=== PATIENT | male | born 1965 | race Caucasian/White ===

== ENCOUNTER 2019-01-04 09:40 | Emergency (ER) | payer BC, OTHER ==
[~2019-01-04] VITALS: Ht 190.5 cm; Wt 149.7 kg
[2019-01-04] MEDS ORDERED: SODIUM CHLORIDE 0.9% 1,000 ML IV ONE ×2 (10:15)
[2019-01-04] MEDS ORDERED: PROMETHAZINE HCL 25 MG/ML 1ML IV ONE (10:15)
[2019-01-04] MEDS ORDERED: KETOROLAC TROMETH 30 MG/ML 1ML VIAL IV ONE (10:15)
[2019-01-04 10:40] LABS: Basophils # (auto) 0.1 uL; Basophils % (auto) 0.7 % (0.0-2.0); Eosinophils # (auto) 0.3 uL; Eosinophils % (auto) 3.2 % (0.0-7.0); Hematocrit 48.9 % (41.0-53.0); Hemoglobin 17.2 g/dL (13.5-17.5); Lymphocytes # (auto) 1.5 uL; Lymphocytes % (auto) 18.8 % (10.0-50.0); Mean Corpuscular Hemoglobin 32.4 pg (28.0-32.0); Mean Corpuscular Hgb Conc. 35.3 g/dL (32.0-36.0); Mean Corpuscular Volume 91.8 fL (80.0-100.0); Monocytes # (auto) 0.5 uL; Monocytes % (auto) 5.8 % (0.0-12.0); Neutrophils # (auto) 5.8 uL; Neutrophils % (auto) 71.5 % (37.0-80.0); Nucleated Red Blood Cells % 0.3 %; Platelet Count (auto) 191 10^3/uL (140-450); Red Blood Cells 5.33 10^6/uL (4.5-5.90); Red Cell Distribution Width 13.4 % (11.8-14.3); White Blood Cell 8.1 10^3/uL (4.4-10.8)
[2019-01-04 11:03] LABS: Alanine Aminotransferase 21 U/L (16-61); Albumin 3.7 g/dL (3.4-5.0); Anion Gap 5 (5-15); Aspartate Aminotransferase 14 U/L (15-37); BUN/Creatinine Ratio 19.4; Blood Urea Nitrogen 21 mg/dL (7-18); Calcium 9.7 mg/dL (8.5-10.1); Carbon Dioxide 23 mmol/L (21-32); Chloride 111 mmol/L (98-107); GFR African American 92 mL/min; GFR Non-African American 76 mL/min; Glucose 100 mg/dL (74-106); Potassium 4.3 mmol/L (3.5-5.1); Sodium 139 mmol/L (136-145)
[2019-01-04 11:07] LABS: Alkaline Phosphatase 101 U/L (45-117); Bilirubin, Total 0.4 mg/dL (0.2-1.0); Total Protein 7.1 g/dL (6.4-8.2)
[2019-01-04 11:53] LABS: Urine Bacteria NONE SEEN /hpf (None Seen); Urine Blood 3+ /uL (Negative); Urine Mucus FEW (None Seen); Urine Specific Gravity 1.017 (1.001-1.035); Urine WBC 158 /hpf (0 - 3)
[2019-01-04 12:03] VITALS: BP 116/77
== END 2019-01-04 12:11 | disposition home or self-care (01) ==
LOC: EDBD 09:40 → EDUNIT# 09:40 → ER 09:40
DX: N39.0 Urinary tract infection, site not specified (principal); N20.0 Calculus of kidney; F17.210 Nicotine dependence, cigarettes, uncomplicated
CPT/HCPCS: 36415; 74176; 80053; 81001; 84484; 85025; 93005; 96361; 96374; 96375; 99284; J1885; J2550; J7030

== ENCOUNTER 2019-05-09 13:07 | Emergency (ER) | payer BC ==
[~2019-05-09] VITALS: Ht 193 cm; Wt 136.1 kg
[2019-05-09 14:08] LABS: Basophils # (auto) 0 uL; Basophils % (auto) 0.4 % (0.0-2.0); Eosinophils # (auto) 0.2 uL; Eosinophils % (auto) 1.3 % (0.0-7.0); Hematocrit 50.8 % (41.0-53.0); Hemoglobin 17.1 g/dL (13.5-17.5); Lymphocytes % (auto) 8.9 % (10.0-50.0); Mean Corpuscular Hemoglobin 31.5 pg (28.0-32.0); Mean Corpuscular Hgb Conc. 33.6 g/dL (32.0-36.0); Mean Corpuscular Volume 93.5 fL (80.0-100.0); Monocytes # (auto) 0.8 uL; Monocytes % (auto) 6.9 % (0.0-12.0); Neutrophils # (auto) 9.5 uL; Neutrophils % (auto) 82.5 % (37.0-80.0); Nucleated Red Blood Cells % 0.1 %; Platelet Count (auto) 171 10^3/uL (140-450); Red Blood Cells 5.44 10^6/uL (4.5-5.90); Red Cell Distribution Width 14.1 % (11.8-14.3); White Blood Cell 11.6 10^3/uL (4.4-10.8)
[2019-05-09 14:29] LABS: Albumin 3.8 g/dL (3.4-5.0); Anion Gap 6 (5-15); Blood Urea Nitrogen 16 mg/dL (7-18); Calcium 9.9 mg/dL (8.5-10.1); Carbon Dioxide 22 mmol/L (21-32); Chloride 110 mmol/L (98-107); Glucose 91 mg/dL (74-106); Magnesium 2.1 mg/dL (1.6-2.6); Sodium 138 mmol/L (136-145)
[2019-05-09 14:51] LABS: Urine Bacteria FEW /hpf (None Seen); Urine Blood 2+ /uL (Negative); Urine Mucus FEW (None Seen); Urine Specific Gravity 1.016 (1.001-1.035); Urine WBC 127 /hpf (0 - 3)
[2019-05-09 15:02] LABS: Alanine Aminotransferase 21 U/L (16-61); Alkaline Phosphatase 104 U/L (45-117); Aspartate Aminotransferase 14 U/L (15-37); BUN/Creatinine Ratio 15.5; Bilirubin, Total 0.5 mg/dL (0.2-1.0); GFR African American 98 mL/min; GFR Non-African American 81 mL/min; Total Protein 7.4 g/dL (6.4-8.2)
[2019-05-09] MEDS ORDERED: cefTRIAXone W LIDOCAINE 1 GM IM IM ONE (15:15)
[2019-05-09] MEDS ORDERED: cefTRIAXone 1GM/50ML D5W 50 ML IV ONE (16:45)
[2019-05-09] MEDS: SODIUM CHLORIDE 0.9% 1,000 ML IV ONE ×2 (16:59→17:15)
[2019-05-09 17:16] VITALS: BP 118/75
== END 2019-05-09 17:26 | disposition left against medical advice (07) ==
LOC: ER 13:07
DX: N20.0 Calculus of kidney (principal); N39.0 Urinary tract infection, site not specified; F17.210 Nicotine dependence, cigarettes, uncomplicated; Z53.29 Procedure and treatment not carried out because of patient's decision for other reasons
CPT/HCPCS: 36415; 70450; 71046; 74176; 80053; 81001; 83735; 84484; 85025; 93005; 99284; J0696

== ENCOUNTER 2025-02-08 08:04 | Inpatient (IN) | payer BC, OTHER ==
[~2025-02-08] VITALS: Ht 193 cm; Wt 138.7 kg
--- NOTE | 2025-02-08 08:47 | ED.PDOC ---
General HPI Comments This is a 59 year old male presenting to the ED with chief complaint of flank pain. Patient reports that he has been experiencing right sided flank pain since Thursday with associated radiation to his RLQ and dysuria. Patient relays that he has had previous kidney stones in the past and has had multiple lithotripsy procedures. Patient denies any N/V/D, abdominal pain, fever, chills, or hematuria. Chief Complaint: Flank Pain Time Seen by MD: 08:46 Primary Care Provider: CAYETANO Parry notes: Nurses Notes, Medications, Allergies Allergies: Coded Allergies: NO KNOWN ALLERGIES (Unverified , 01/04/19) Information Source: Patient Mode of Arrival: Ambulatory Severity: Moderate Timing: Days Duration: Since onset Prehospital treatment: None Onset: Spontaneous Symptoms: Dysuria History of: Kidney stone Location: (R) Flank Penile discharge: None Modifying factors: None associated signs and symptoms: Flank Pain, Dysuria Past Medical History PAST MEDICAL HISTORY: Kidney Stones Surgical History: Hernia Repair Surgical History (Other): Lithotripsy Family History Family History: Reviewed,noncontributory to illness, No family hx of Cancer, No family hx of DM Social History Smoker: Cigarettes, Greater Than 1 Pack/Day Alcohol: Occasionally Drugs: Denies Drug Use Lives In: Home Constitutional: denies: chills, diaphoresis, fatigue, fever, malaise, sweats, weakness, others EENTM: denies: blurred vision, double vision, ear bleeding, ear discharge, ear drainage, ear pain, ear ringing, eye pain, eye redness, hearing loss, mouth pain, mouth swelling, nasal discharge, nose bleeding, nose congestion, nose p ain, photophobia, tearing, throat pain, throat swelling, voice changes, others Respiratory: denies: cough, hemoptysis, orthopnea, SOB at rest, shortness of breath, SOB with excertion, stridor, wheezing, others Cardiovascular: denies: chest pain, dizzy spells, diaphoresis, Dyspnea on exertion, edema, irregular heart beat, left arm pain, lightheadedness, palpitations, PND, syncope, others Gastrointestinal: denies: abdomen distended, abdominal pain, blood streaked bowels, constipated, diarrhea, dysphagia, difficulty swallowing, hematemesis, melena, nausea, poor appetite, poor fluid intake, rectal bleeding, rectal pain, vomiting, others Genitourinary: reports: dysuria, flank pain; denies: burning, frequency, hematuria, incontinence, penile discharge, penile sore, pain, testicle pain, testicle swelling, urgency, others Neurological: denies: dizziness, fainting, headache, left sided numbness, left sided weakness, numbness, paresthesia, pre-existing deficit, right sided numbness, right sided weakness, seizure, speech problems, tingling, tremors, weakness, others Musculoskeletal: denies: back pain, gout, joint pain, joint swelling, muscle pain, muscle stiffness, neck pain, others Integumetry: denies: bruises, change in color, change in hair/nails, dryness, laceration, lesions, lumps, rash, wounds, others Allergic/Immunocompromised: denies: Difficulty Healing, Frequent Infections, Hives, Itching, others Hematologic/Lymphatic: denies: anemia, blood clots, easy bleeding, easy bruising, swollen glands, others Endocrine: denies: excessive hunger, excessive sweating, excessive thirst, excessive urination, flushing, intolerance to cold, intolerance to heat, unexplained weight gain, unexplained weight loss, others Psychiatric: denies: anxiety, bipolar disorder, depression, hopeless, panic disorder, schizophrenia, sleepless, suicidal, others All Other Systems: Reviewed and Negative Physical Exam General Appearance: No Apparent Distress, Normal HEENT: Normal ENT Inspection, Pharynx Normal, TMs Normal Neck: Full Range of Motion, Non-Tender, Normal, Normal Inspection Respiratory: Chest Non-Tender, Lungs Clear, No Accessory Muscle Use, No Respiratory Distress, Normal Breath Sounds Cardiovascular: No Edema, No JVD, No Murmur, No Gallop, Normal Peripheral Pulses, Regular Rate/Rhythm Breast Exam: Deferred Gastrointestinal: No Organomegaly, Non Tender, No Pulsatile Mass, Normal Bowel Sounds, Soft Genitalia: Deferred Pelvic: Deferred Rectal: Deferred Extremities: No calf tenderness, Normal capillary refill, Normal inspection, Normal range of motion, Non-tender, No pedal edema Musculoskeletal : Location: Right Apperance: Normal, Tenderness (Rt CVA tenderness) Neurologic: Alert, 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 Was a procedure done?: No Differential Diagnosis Kidney stone (Female): N/A Kidney stone (Male): Cholelithiasis, Pyelonephritis, Urolithiasis, Renal infarction, Urinary tract infection Penile/Scrotal: N/A Urinary Problem (Male): N/A Urinary Problem (Female): N/A X-Ray, Labs, Meds, VS Vital Signs Date Time Temp Pulse Resp B/P (MAP) Pulse Ox O2 Delivery O2 Flow Rate FiO2 02/08/25 09:52 90 15 126/96 02/08/25 09:18 96 18 135/84 02/08/25 09:16 98.9 96 18 135/84 (101) 95 98.9 02/08/25 09:16 96 18 95 Room Air 02/08/25 08:06 98.2 98 15 149/99 97 98.2 Lab Test 02/08/25 09:31 02/08/25 08:56 Range/Units Urine Color Yellow Yellow Urine Clarity Turbid H Clear Urine pH 6.0 5.0-9.0 Urine Specific [place] 1.021 1.001-1.035 Urine Protein 1+ H Negative Urine Ketones Negative Negative Urine Blood 3+ H Negative /uL Urine Nitrite Negative Negative Urine Bilirubin Negative Negative Urine Urobilinogen Normal Negative mg/dL Urine Leukocyte Esterase Trace Negative /uL Urine RBC 567 0 - 3 /hpf Urine Microscopic WBC 7 H 0-3 /HPF Urine Squamous Epithelial Cells Few <5 /hpf Urine Bacteria Few H None Seen /hpf Urine Hyaline Casts Few 0 - 2 /lpf Urine Mucus Few None Seen Urine Glucose Normal Normal mg/dL White Blood Count 6.4 4.4-10.8 10^3/uL Red Blood Count 5.12 4.5-5.90 10^6/uL Hemoglobin 16.4 13.5-17.5 g/dL Hematocrit 47.4 41.0-53.0 % Mean Corpuscular Volume 92.6 80.0-100.0 fL Mean Corpuscular Hemoglobin 32.0 28.0-32.0 pg Mean Corpuscular Hemoglobin Concent 34.6 32.0-36.0 g/dL Red Cell Distribution Width 13.6 11.8-14.3 % Platelet Count 160 140-450 10^3/uL Mean Platelet Volume 8.0 6.9-10.8 fL Neutrophils (%) (Auto) 71.8 37.0-80.0 % Lymphocytes (%) (Auto) 18.5 10.0-50.0 % Monocytes (%) (Auto) 6.6 0.0-12.0 % Eosinophils (%) (Auto) 2.4 0.0-7.0 % Basophils (%) (Auto) 0.7 0.0-2.0 % Neutrophils # (Auto) 4.6 1.6-8.6 10 ^3/uL Lymphocytes # (Auto) 1.2 0.4-5.4 10 ^3/uL Monocytes # (Auto) 0.4 0-1.3 10 ^3/uL Eosinophils # (Auto) 0.2 0-0.8 10 ^3/uL Basophils # (Auto) 0 0-0.2 10 ^3/uL Nucleated Red Blood Cells 0.1 % Sodium Level 142 136-145 mmol/L Potassium Level 4.1 3.5-5.1 mmol/L Chloride Level 112 H 98-107 mmol/L Carbon Dioxide Level 23 20-31 mmol/L Anion Gap 7 5-15 Blood Urea Nitrogen 16 9-23 mg/dL Creatinine 1.44 H 0.700-1.30 mg/dL Glomerular Filtration Rate Calc 56 >90 mL/min BUN/Creatinine Ratio 11.1 10.0-20.0 Serum Glucose 97 74-106 mg/dL Calcium Level 10.1 8.7-10.4 mg/dL Current Medications Medications (Trade) Dose Ordered Sig/Veronica Route Start Time Stop Time Status Last Admin Sodium Chloride 1,000 ml @ 1,000 mls/hr Q1H ONCE IV 02/08/25 08:45 02/08/25 09:44 DC 02/08/25 09:20 Morphine Sulfate 4 mg ONCE ONCE IV 02/08/25 08:45 02/08/25 08:46 DC 02/08/25 09:18 Ketorolac Tromethamine (Toradol Injection) 15 mg ONCE ONCE IV 02/08/25 08:45 02/08/25 08:46 DC 02/08/25 09:19 Ondansetron HCl (Zofran) 4 mg ONCE ONCE IV 02/08/25 08:45 02/08/25 08:46 DC 02/08/25 09:19 Tamsulosin HCl (Flomax) 0.4 mg ONCE ONCE PO 02/08/25 08:45 02/08/25 08:46 DC 02/08/25 09:[address] [address] Ph: [phone] DIAGNOSTIC IMAGING Diagnostic Imaging Report : [id number] Signed PATIENT: KAITLYNN SIMONS ACCT: [id number] UNIT: [id number] : 1965 LOC: ER ROOM / BED: / AGE / SEX: 59 / M ADM STATUS: REG ER SERVICE 4 ORDERING PHYSICIAN: JUILAN REARDON MD PROCEDURE(s): ABPL - CT AB PEL WO CON-NO ORAL OR IV REASON: right flank pain ORDER NUMBER(s): [id number], ACCESSION NUMBER(s): [id number] Indication: right flank pain Comparison: None Technique: Helical axial scans were performed through the abdomen and pelvis without intravenous contrast. Subsequently, coronal and sagittal reformations were obtained. Dose lowering techniques have been used including automated exposure control and adjustment of mA and/or kv according to patient size. FINDINGS: Limited evaluation of the vasculature and solid organs due to lack of intravenous contrast. LUNGS BASES: Clear LIVER: Normal noncontrast appearance of the liver SPLEEN: Normal GALLBLADDER: Normal PANCREAS: Normal ADRENAL GLANDS: Normal KIDNEYS: Mild right hydronephrosis with a 7 mm stone in the right ureteropelvic junction. No significant left hydronephrosis with a 5 mm stone in the left ureteral pelvic junction. Additional bilateral nonobstructing stones. GI: No bowel dilation or wall thickening. Normal appendix. LYMPH NODES: Normal VASCULAR STRUCTURES: Normal BLADDER: Normal PELVIC ORGAN: Normal FREE AIR OR FREE FLUID: None OSSEOUS STRUCTURES: Multilevel degenerative changes of the spine. SOFT TISSUES: Normal DLP is 1741.7 mGy-cm. CTDI vol is 25.47 mGy. IMPRESSION: 1. Mild right hydronephrosis with a 7 mm stone in the right ureteropelvic junction. 2. No significant left hydronephrosis with a 5 mm stone in the left ureteropelvic junction. 3. Additional nonobstructing bilateral renal stones. ATED BY: RANDY ORDONEZ MD DICTATED DATE/TIME: 02/08/25932 SIGNED BY: RANDY ORDONEZ MD SIGNED DATE/TIME: 02/08/25932 CC: Time of 1ST Reevaluation: 09:45 Reevaluation 1ST: Unchanged Patient Education/Counseling: Diagnosis, Treatment Family Education/Counseling: No Family Present SEPSIS Sepsis Screen Date sepsis recognized/suspect: Feb 08, 2025 Time Sepsis recognized/suspect: 0807 Recent Procedure: No On Antibiotic Therapy: No Respiratory Rate >20: No Heart Rate >90: No Temp<36 C (96.8 F) or >38.3 C: No SBP <90 or MAP <65 mmHG: No New Acute Mental Status Change: No Is the patient on CPAP, BIPAP,: No Physician Orders Ct Ab Pel Wo Con-No Oral Or Iv (02/08/25 08:45) Vital Signs Date Time Temp Pulse Resp B/P (MAP) Pulse Ox O2 Delivery O2 Flow Rate FiO2 02/08/25 09:52 90 15 126/96 02/08/25 09:18 96 18 135/84 02/08/25 09:16 98.9 96 18 135/84 (101) 95 98.9 02/08/25 09:16 96 18 95 Room Air 02/08/25 08:06 98.2 98 15 149/99 97 98.2 Laboratory Tests Test 02/08/25 08:56 White Blood Count 6.4 10^3/uL (4.4-10.8) Medications Medications Dose Ordered Sig/Veronica Route Start Time Stop Time Status Last Admin Dose Admin Ketorolac Tromethamine 15 mg ONCE ONCE IV 02/08/25 08:45 02/08/25 08:46 DC 02/08/25 09:19 Morphine Sulfate 4 mg ONCE ONCE IV 02/08/25 08:45 02/08/25 08:46 DC 02/08/25 09:18 Ondansetron HCl 4 mg ONCE ONCE IV 02/08/25 08:45 02/08/25 08:46 DC 02/08/25 09:19 Sodium Chloride 1,000 ml @ 1,000 mls/hr Q1H ONCE IV 02/08/25 08:45 02/08/25 09:44 DC 02/08/25 09:20 Tamsulosin HCl 0.4 mg ONCE ONCE PO 02/08/25 08:45 02/08/25 08:46 DC 02/08/25 09:19 Departure 1 Departure Time of Disposition: 11:01 (Patient presented with abdominal pain that was concerning for possible appendicits, gastritis, cholecystitis, colitis, gastroenteritis, sbo, or orther possible surgical emergency. Data: 1. I ordered and reviewed the result of at least 3 labs including a CBC, BMP, and Urinalysis. 2. I independently interpreted the following tests: CT Abdomen and Pelvis is concerning for obstructing kidney stone .Risk:This patient has a high risk of morbidity due to further diagnostic testing or treatment and may suffer from an acute abdominal process disorder. Workup reveals obstructing ureteral colic and intractable pain and patient should be admitted for further workup. and possible expert consultation. ) Impression: Primary Impression: Ureteral colic Additional Impression: Hydronephrosis Qualified Codes: N13.2 - Hydronephrosis with renal and ureteral calculous obstruction Disposition: ADMITTED INPATIENT Admit to: Med Surg Condition: Guarded Critical Care Note Critical Care Time?: Yes Critical care comment: Intractable abdominal pain Authorized and Performed by: Julian Reardon MD Total critical care time: Approximately 39 minutes Due to a high probability of clinically significant, life threatening deterioration, the patient required my highest level of preparedness to intervene emergently and I personally spent this critical care time directly and personally managing the patient. This critical care time included obtaining a history; examining the patient; pulse oximetry; ordering and review of studies; arranging urgent treatment with development of a management plan; evaluation of patient's response to treatment; frequent reassessment; and, discussions with other providers. This critical care time was performed to assess and manage the high probability of imminent, life-threatening deterioration that could result in multi-organ failure. It was exclusive of separately billable procedures and treating other patients and teaching time. Please see my other sections and the rest of the note for further information on patient assessment and treatment. Stability Stability form required: No Heart Score Heart Score: Heart Score Response (Comments) Value History N/A 0 EKG N/A 0 Age N/A 0 Risk Factors N/A 0 Troponin N/A 0 Total 0 I personally scribed for JULIAN REARDON MD ([email or web address]) on 02/08/25 at 08:47. Electronically submitted by Curry Albert ([email or web address]). I personally scribed for JULIAN REARDON MD ([email or web address]) on 02/08/25 at 10:19. Electronically submitted by Curry Albert ([email or web address]). JULIAN REARDON MD Feb 08, 2025 08:47
[2025-02-08] MEDS: MORPHINE SULFATE 4 MG/ML SYR/VIAL IV ONE (09:18)
[2025-02-08 09:19] LABS: Potassium 4.1 mmol/L (3.5-5.1); Sodium 142 mmol/L (136-145)
[2025-02-08] MEDS: TAMSULOSIN HYDROCHLORIDE 0.4 MG CAP PO ONE (09:19)
[2025-02-08] MEDS: ONDANSETRON HCL 4 MG/2 ML VIAL IV ONE (09:19)
[2025-02-08] MEDS: KETOROLAC TROMETH 30 MG/ML 1ML VIAL IV ONE ×2 (09:19→16:15)
[2025-02-08 09:20] LABS: Anion Gap 7 (5-15); Calcium 10.1 mg/dL (8.7-10.4); Carbon Dioxide 23 mmol/L (20-31)
[2025-02-08] MEDS: SODIUM CHLORIDE 0.9% 1,000 ML IV ONE ×2 (09:20→12:11)
[2025-02-08 09:25] LABS: BUN/Creatinine Ratio 11.1 (10.0-20.0); Blood Urea Nitrogen 16 mg/dL (9-23); Glucose 97 mg/dL (74-106)
[2025-02-08 09:27] LABS: Chloride 112 mmol/L (98-107)
[2025-02-08 09:31] LABS: Hematocrit 47.4 % (41.0-53.0); Hemoglobin 16.4 g/dL (13.5-17.5); Mean Corpuscular Hemoglobin 32.0 pg (28.0-32.0); Mean Corpuscular Volume 92.6 fL (80.0-100.0); Nucleated Red Blood Cells % 0.1 %
--- NOTE | 2025-02-08 09:35 | DVH ---
Indication: right flank pain Comparison: None Technique: Helical axial scans were performed through the abdomen and pelvis without intravenous contrast. Subsequently, coronal and sagittal reformations were obtained. Dose lowering techniques have been used including automated exposure control and adjustment of mA and/or kv according to patient size. FINDINGS: Limited evaluation of the vasculature and solid organs due to lack of intravenous contrast. LUNGS BASES: Clear LIVER: Normal noncontrast appearance of the liver SPLEEN: Normal GALLBLADDER: Normal PANCREAS: Normal ADRENAL GLANDS: Normal KIDNEYS: Mild right hydronephrosis with a 7 mm stone in the right ureteropelvic junction. No significant left hydronephrosis with a 5 mm stone in the left ureteral pelvic junction. Additional bilateral nonobstructing stones. GI: No bowel dilation or wall thickening. Normal appendix. LYMPH NODES: Normal VASCULAR STRUCTURES: Normal BLADDER: Normal PELVIC ORGAN: Normal FREE AIR OR FREE FLUID: None OSSEOUS STRUCTURES: Multilevel degenerative changes of the spine. SOFT TISSUES: Normal DLP is 1741.7 mGy-cm. CTDI vol is 25.47 mGy. IMPRESSION: 1. Mild right hydronephrosis with a 7 mm stone in the right ureteropelvic junction. 2. No significant left hydronephrosis with a 5 mm stone in the left ureteropelvic junction. 3. Additional nonobstructing bilateral renal stones.
[2025-02-08 10:21] LABS: Urine Protein, UAD 1+ (Negative)
--- NOTE | 2025-02-08 12:50 | DVHINCON2 ---
Date of service: Feb 08, 2025 Referring Physician ER Reason for Consultation Right flank pain Right hydronephrosis Right ureteral stone Right renal stone History of Present Illness 59 year old male presenting to the ED with chief complaint of flank pain. Patient reports that he has been experiencing right sided flank pain since Thursday with associated radiation to his RLQ and dysuria. Patient relays that he has had previous kidney stones in the past and has had multiple lithotripsy procedures. Patient denies any N/V/D, abdominal pain, fever, chills, or hematuria. Chief Complaint: Flank Pain Primary Care Provider: CAYETANO Reviewed notes: Nurses Notes, Medications, Allergies Allergies: Coded Allergies: NO KNOWN ALLERGIES (Unverified , 01/04/19) Information Source: Patient Mode of Arrival: Ambulatory Severity: Moderate Timing: Days Duration: Since onset Prehospital treatment: None Onset: Spontaneous Symptoms: Dysuria History of: Kidney stone Location: (R) Flank Penile discharge: None Modifying factors: None associated signs and symptoms: Flank Pain, Dysuria Past Medical History Kidney Stones Past Surgical History Hernia Repair Surgical History (Other): Lithotripsy Allergies: Coded Allergies: NO KNOWN ALLERGIES (Unverified , 01/04/19) Review of Systems Constitutional: denies: chills, diaphoresis, fatigue, fever, malaise, sweats, weakness, others EENTM: denies: blurred vision, double vision, ear bleeding, ear discharge, ear drainage, ear pain, ear ringing, eye pain, eye redness, hearing loss, mouth pain, mouth swelling, nasal discharge, nose bleeding, nose congestion, nose pain, photophobia, tearing, throat pain, throat swelling, voice changes, others Respiratory: denies: cough, hemoptysis, orthopnea, SOB at rest, shortness of breath, SOB with excertion, stridor, wheezing, others Cardiovascular: denies: chest pain, dizzy spells, diaphoresis, Dyspnea on exertion, edema, irregular heart beat, left arm pain, lightheadedness, palpitations, PND, syncope, others Gastrointestinal: denies: abdomen distended, abdominal pain, blood streaked bowels, constipated, diarrhea, dysphagia, difficulty swallowing, hematemesis, melena, nausea, poor appetite, poor fluid intake, rectal bleeding, rectal pain, vomiting, others Genitourinary: reports: dysuria, flank pain; denies: burning, frequency, hematuria, incontinence, penile discharge, penile sore, pain, testicle pain, testicle swelling, urgency, others Neurological: denies: dizziness, fainting, headache, left sided numbness, left sided weakness, numbness, paresthesia, pre-existing deficit, right sided numbness, right sided weakness, seizure, speech problems, tingling, tremors, weakness, others Musculoskeletal: denies: back pain, gout, joint pain, joint swelling, muscle pain, muscle stiffness, neck pain, others Integumetry: denies: bruises, change in color, change in hair/nails, dryness, laceration, lesions, lumps, rash, wounds, others Allergic/Immunocompromised: denies: Difficulty Healing, Frequent Infections, Hives, Itching, others Hematologic/Lymphatic: denies: anemia, blood clots, easy bleeding, easy bruising, swollen glands, others Endocrine: denies: excessive hunger, excessive sweating, excessive thirst, excessive urination, flushing, intolerance to cold, intolerance to heat, unexplained weight gain, unexplained weight loss, others Psychiatric: denies: anxiety, bipolar disorder, depression, hopeless, panic disorder, schizophrenia, sleepless, suicidal, others All Other Systems: Reviewed and Negative Vital Signs Vital Signs Date Time Temp Pulse Resp B/P (MAP) Pulse Ox O2 Delivery O2 Flow Rate FiO2 02/08/25 09:52 90 15 126/96 02/08/25 09:16 98.9 95 98.9 02/08/25 09:16 Room Air Physical Exam General Appearance: No Apparent Distress, Normal HEENT: Normal ENT Inspection, Pharynx Normal, TMs Normal Neck: Full Range of Motion, Non-Tender, Normal, Normal Inspection Respiratory: Chest Non-Tender, Lungs Clear, No Accessory Muscle Use, No Respiratory Distress, Normal Breath Sounds Cardiovascular: No Edema, No JVD, No Murmur, No Gallop, Normal Peripheral Pulses, Regular Rate/Rhythm Breast Exam: Deferred Gastrointestinal: No Organomegaly, Non Tender, No Pulsatile Mass, Normal Bowel Sounds, Soft Genitalia: Deferred Pelvic: Deferred Rectal: Deferred Extremities: No calf tenderness, Normal capillary refill, Normal inspection, Normal range of motion, Non-tender, No pedal edema Musculoskeletal : Location: Right Apperance: Normal, Tenderness (Rt CVA tenderness) Neurologic: Alert, 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, No Motor Deficits, Normal Affect, Normal Mood, No Sensory Deficits Cerebellar Function: Normal Reflexes: Normal Skin: Dry, Normal Color, Warm Lymphatic: No Adenopathy Labs/Diagnostic Data Labs Test 02/08/25 09:31 02/08/25 08:56 Range/Units Urine Color Yellow Yellow Urine Clarity Turbid H Clear Urine pH 6.0 5.0-9.0 Urine Specific [place] 1.021 1.001-1.035 Urine Protein 1+ H Negative Urine Ketones Negative Negative Urine Blood 3+ H Negative /uL Urine Nitrite Negative Negative Urine Bilirubin Negative Negative Urine Urobilinogen Normal Negative mg/dL Urine Leukocyte Esterase Trace Negative /uL Urine RBC 567 0 - 3 /hpf Urine Microscopic WBC 7 H 0-3 /HPF Urine Squamous Epithelial Cells Few <5 /hpf Urine Bacteria Few H None Seen /hpf Urine Hyaline Casts Few 0 - 2 /lpf Urine Mucus Few None Seen Urine Glucose Normal Normal mg/dL White Blood Count 6.4 4.4-10.8 10^3/uL Red Blood Count 5.12 4.5-5.90 10^6/uL Hemoglobin 16.4 13.5-17.5 g/dL Hematocrit 47.4 41.0-53.0 % Mean Corpuscular Volume 92.6 80.0-100.0 fL Mean Corpuscular Hemoglobin 32.0 28.0-32.0 pg Mean Corpuscular Hemoglobin Concent 34.6 32.0-36.0 g/dL Red Cell Distribution Width 13.6 11.8-14.3 % Platelet Count 160 140-450 10^3/uL Mean Platelet Volume 8.0 6.9-10.8 fL Neutrophils (%) (Auto) 71.8 37.0-80.0 % Lymphocytes (%) (Auto) 18.5 10.0-50.0 % Monocytes (%) (Auto) 6.6 0.0-12.0 % Eosinophils (%) (Auto) 2.4 0.0-7.0 % Basophils (%) (Auto) 0.7 0.0-2.0 % Neutrophils # (Auto) 4.6 1.6-8.6 10 ^3/uL Lymphocytes # (Auto) 1.2 0.4-5.4 10 ^3/uL Monocytes # (Auto) 0.4 0-1.3 10 ^3/uL Eosinophils # (Auto) 0.2 0-0.8 10 ^3/uL Basophils # (Auto) 0 0-0.2 10 ^3/uL Nucleated Red Blood Cells 0.1 % Sodium Level 142 136-145 mmol/L Potassium Level 4.1 3.5-5.1 mmol/L Chloride Level 112 H 98-107 mmol/L Carbon Dioxide Level 23 20-31 mmol/L Anion Gap 7 5-15 Blood Urea Nitrogen 16 9-23 mg/dL Creatinine 1.44 H 0.700-1.30 mg/dL Glomerular Filtration Rate Calc 56 >90 mL/min BUN/Creatinine Ratio 11.1 10.0-20.0 Serum Glucose 97 74-106 mg/dL Calcium Level 10.1 8.7-10.4 mg/dL Assessment Right renal stone Right ureteral stone, 7 mm proximal Right hydronephrosis, mild Right flank pain Left proximal ureteral stone Mild azotemia, creatinine 1.44 Plan/Recommendation Cystoscopy with right ureteral stent placement and right ESWL TBA Patient apparently was started on Ozempic today and due to the gastroparesis effect, anesthesiology service would not recommend proceeding with surgery unless he was in emergency. I discussed with the patient that because of his Ozempic therapy, he is at higher risk for aspiration and even from anesthesia risks spectrum. Patient states that his pain is controlled with narcotics. 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 I recommended that he stay off work and maintain pain management. When the Ozempic effect wears off, we will proceed with the elective surgery on outpatient basis. Plan discussed with: Patient, Other MUMTAZ BASURTO MD Feb 08, 2025 12:50
[2025-02-08] MEDS: SODIUM CHLORIDE 0.9% 1,000 ML IV SCH (13:45)
[2025-02-08] MEDS ORDERED: ACETAMINOPHEN 325 MG TAB PO PRN (13:45)
[2025-02-08] MEDS ORDERED: ONDANSETRON HCL 4 MG/2 ML VIAL IV PRN (13:45)
[2025-02-08] MEDS ORDERED: DOCUSATE SOD 100 MG CAP PO PRN (13:45)
--- NOTE | 2025-02-08 14:34 | DVHHP2 ---
History of Present Illness Reason for Visit: Left flank pain History of Present Illness Dusty Figueroa is a 59-year-old male with past medical history of kidney stones, who came to the hospital with complaints of right flank pain. Patient states his pain began on Thursday with right flank pain and right pelvic pain. The pain cont inued to worsen with associated nausea and vomiting prompting him to leave work today and come to the hospital. Past Surgical History: Hernia Repair, Other (Lithotripsy) Smoke: <1 pack per day ALCOHOL: none Drugs: None Lives: with Family Domestic Violence: Neg Review of Systems Constitutional: No: Fever, Chills, Sweats, Weakness, Malaise, Other Eyes: No: Pain, Vision change, Conjunctivae inflammation, Eyelid inflammation, Other, Redness ENT: No: Ear pain, Ear discharge, Nose pain, Nose discharge, Nose congestion, Mouth pain, Mouth swelling, Throat pain, Throat swelling, Other Respiratory: No: Cough, Dry, Shortness of breath, SOB with excertion, Wheezing, Hemoptysis, Pleuritic Pain, Sputum, Wheezing, Other Cardiovascular: No: Chest Pain, Palpitations, Orthopnea, Paroxysmal Noc. Dyspnea, Edema, Lt Headedness, Other Gastrointestinal: Nausea, Vomiting, Abdominal Pain (pelvic pain); No: Diarrhea, Constipation, Melena, Hematochezia, Other Genitourinary: No Dysuria, No Frequency, No Incontinence; Hematuria; No Retention, No Other Musculoskeletal: back pain (right flank pain); No: other, neck pain, shoulder pain, arm pain, hand pain, leg pain, foot pain Skin: No: Rash, Lesions, Jaundice, Bruising, Other Neurological: No: Weakness, Numbness, Incoordination, Change in speech, Confusion, Seizures, Other Allergies: Coded Allergies: NO KNOWN ALLERGIES (Unverified , 01/04/19) Exam Vital Signs Vital Signs Date Time Temp Pulse Resp B/P (MAP) Pulse Ox O2 Delivery O2 Flow Rate FiO2 02/08/25 09:52 90 15 126/96 02/08/25 09:16 98.9 95 98.9 02/08/25 09:16 Room Air General Appearance: Alert, Oriented X3, Cooperative, mild distress HEENT: Atraumatic, PERRLA Respiratory: Clear to auscultation, Normal air movement Cardiovascular: Regular rate, Normal S1, Normal S2 Abdominal: Normal bowel sounds, Soft, Other (right flank pain and pelvic pain) Extremities: No clubbing, No cyanosis, No edema, Normal pulses Skin: No rashes, No breakdown, No significant lesion Neuro: Normal gait, Normal speech, Strength at 5/5 X4 ext Psych/Mental Status: Mental status NL, Mood NL Labs/Xrays Labs Test 02/08/25 09:31 02/08/25 08:56 Range/Units Urine Color Yellow Yellow Urine Clarity Turbid H Clear Urine pH 6.0 5.0-9.0 Urine Specific [place] 1.021 1.001-1.035 Urine Protein 1+ H Negative Urine Ketones Negative Negative Urine Blood 3+ H Negative /uL Urine Nitrite Negative Negative Urine Bilirubin Negative Negative Urine Urobilinogen Normal Negative mg/dL Urine Leukocyte Esterase Trace Negative /uL Urine RBC 567 0 - 3 /hpf Urine Microscopic WBC 7 H 0-3 /HPF Urine Squamous Epithelial Cells Few <5 /hpf Urine Bacteria Few H None Seen /hpf Urine Hyaline Casts Few 0 - 2 /lpf Urine Mucus Few None Seen Urine Glucose Normal Normal mg/dL White Blood Count 6.4 4.4-10.8 10^3/uL Red Blood Count 5.12 4.5-5.90 10^6/uL Hemoglobin 16.4 13.5-17.5 g/dL Hematocrit 47.4 41.0-53.0 % Mean Corpuscular Volume 92.6 80.0-100.0 fL Mean Corpuscular Hemoglobin 32.0 28.0-32.0 pg Mean Corpuscular Hemoglobin Concent 34.6 32.0-36.0 g/dL Red Cell Distribution Width 13.6 11.8-14.3 % Platelet Count 160 140-450 10^3/uL Mean Platelet Volume 8.0 6.9-10.8 fL Neutrophils (%) (Auto) 71.8 37.0-80.0 % Lymphocytes (%) (Auto) 18.5 10.0-50.0 % Monocytes (%) (Auto) 6.6 0.0-12.0 % Eosinophils (%) (Auto) 2.4 0.0-7.0 % Basophils (%) (Auto) 0.7 0.0-2.0 % Neutrophils # (Auto) 4.6 1.6-8.6 10 ^3/uL Lymphocytes # (Auto) 1.2 0.4-5.4 10 ^3/uL Monocytes # (Auto) 0.4 0-1.3 10 ^3/uL Eosinophils # (Auto) 0.2 0-0.8 10 ^3/uL Basophils # (Auto) 0 0-0.2 10 ^3/uL Nucleated Red Blood Cells 0.1 % Sodium Level 142 136-145 mmol/L Potassium Level 4.1 3.5-5.1 mmol/L Chloride Level 112 H 98-107 mmol/L Carbon Dioxide Level 23 20-31 mmol/L Anion Gap 7 5-15 Blood Urea Nitrogen 16 9-23 mg/dL Creatinine 1.44 H 0.700-1.30 mg/dL Glomerular Filtration Rate Calc 56 >90 mL/min BUN/Creatinine Ratio 11.1 10.0-20.0 Serum Glucose 97 74-106 mg/dL Calcium Level 10.1 8.7-10.4 mg/dL Technique: CT of the abdomen and pelvis without intravenous contrast. FINDINGS: Limited evaluation of the vasculature and solid organs due to lack of intravenous contrast. LUNGS BASES: Clear LIVER: Normal noncontrast appearance of the liver SPLEEN: Normal GALLBLADDER: Normal PANCREAS: Normal ADRENAL GLANDS: Normal KIDNEYS: Mild right hydronephrosis with a 7 mm stone in the right ureteropelvic junction. No significant left hydronephrosis with a 5 mm stone in the left ureteral pelvic junction. Additional bilateral nonobstructing stones. GI: No bowel dilation or wall thickening. Normal appendix. LYMPH NODES: Normal VASCULAR STRUCTURES: Normal BLADDER: Normal PELVIC ORGAN: Normal FREE AIR OR FREE FLUID: None OSSEOUS STRUCTURES: Multilevel degenerative changes of the spine. SOFT TISSUES: Normal DLP is 1741.7 mGy-cm. CTDI vol is 25.47 mGy. IMPRESSION: 1. Mild right hydronephrosis with a 7 mm stone in the right ureteropelvic junction. 2. No significant left hydronephrosis with a 5 mm stone in the left ureteropelvic junction. 3. Additional nonobstructing bilateral renal stones. SEPSIS Sepsis Screen Date sepsis recognized/suspect: Feb 08, 2025 Time Sepsis recognized/suspect: 0807 Recent Procedure: No On Antibiotic Therapy: No Respiratory Rate >20: No Heart Rate >90: No Temp<36 C (96.8 F) or >38.3 C: No SBP <90 or MAP <65 mmHG: No New Acute Mental Status Change: No Is the patient on CPAP, BIPAP,: No Physician Orders Ct Ab Pel Wo Con-No Oral Or Iv (02/08/25 08:45) * Urology Consult (02/08/25 11:00) Npo (Nothing By Mouth) Diet (02/08/25 Lunch) Obtain Consent For: (02/08/25 12:46) Obtain Consent For Anesthesia (02/08/25 12:46) Admit (02/08/25 13:42) Code Status (02/08/25 13:42) 0.9% Ns 1000 Ml (02/08/25 13:45) Hydrocodone-Acet 5/325mg Tab ([place] (02/08/25 13:45) Ondansetron Hcl (Zofran) (02/08/25 13:45) Docusate Sodium Capsule (Colace Capsule) (02/08/25 13:45) Complete Blood Count (02/09/25 04:00) Comprehensive Metabolic Panel (02/09/25 04:00) Condition: Serious (02/08/25 13:42) Acetaminophen Tablet (Tylenol Tablet) (02/08/25 13:45) Vital Signs Date Time Temp Pulse Resp B/P (MAP) Pulse Ox O2 Delivery O2 Flow Rate FiO2 02/08/25 09:52 90 15 126/96 02/08/25 09:18 96 18 135/84 02/08/25 09:16 98.9 96 18 135/84 (101) 95 98.9 02/08/25 09:16 96 18 95 Room Air 02/08/25 08:06 98.2 98 15 149/99 97 98.2 Laboratory Tests Test 02/08/25 08:56 White Blood Count 6.4 10^3/uL (4.4-10.8) Medications Medications Dose Ordered Sig/Veronica Route Start Time Stop Time Status Last Admin Dose Admin Ketorolac Tromethamine 15 mg ONCE ONCE IV 02/08/25 08:45 02/08/25 08:46 DC 02/08/25 09:19 15 MG Morphine Sulfate 4 mg ONCE ONCE IV 02/08/25 08:45 02/08/25 08:46 DC 02/08/25 09:18 4 MG Ondansetron HCl 4 mg ONCE ONCE IV 02/08/25 08:45 02/08/25 08:46 DC 02/08/25 09:19 4 MG Sodium Chloride 1,000 ml @ 1,000 mls/hr Q1H ONCE IV 02/08/25 08:45 02/08/25 09:44 DC 02/08/25 09:20 1,000 MLS/HR Sodium Chloride 1,000 ml @ 1,000 mls/hr Q1H ONCE IV 02/08/25 11:00 02/08/25 11:59 DC 02/08/25 12:11 1,000 MLS/HR Tamsulosin HCl 0.4 mg ONCE ONCE PO 02/08/25 08:45 02/08/25 08:46 DC 02/08/25 09:19 0.4 MG Assessment/Plan Assessment/Plan Assessment: Hydronephrosis, Obstructing renal calculi, UTI, Intractable pain, Plan: Admit to Med-Surg, Urology consult, IV hydration, IV antibiotics, Flomax, Pain management, Plan discussed with: Patient My Orders Orders - JULI MOREJON Procedure Category Date Status Time Admit ADMIT 02/08/25 Transmitted 13:42 Code Status CODE 02/08/25 Transmitted 13:42 0.9% Ns 1000 Ml PHA 02/08/25 Transmitted 13:45 Hydrocodone-Acet PHA 02/08/25 Transmitted 5/325mg Tab ([place] 13:45 Ondansetron Hcl PHA 02/08/25 Transmitted (Zofran) 13:45 Docusate Sodium PHA 02/08/25 Transmitted Capsule (Colace 13:45 Complete Blood Count LAB 02/09/25 Verified 04:00 Comprehensive LAB 02/09/25 Verified Metabolic Panel 04:00 Condition: Serious JACINTA 02/08/25 Transmitted 13:42 Acetaminophen Tablet PHA 02/08/25 Transmitted (Tylenol Tablet) 13:45 Date of Service: Feb 08, 2025 Billing Provider: JULI MOREJON Common Visit Codes: [id number] INP/OBS CARE (MOD) JULI MOREJON Feb 08, 2025 14:34
[2025-02-08] MEDS: CIPROFLOXACIN 400MG/200ML 200 ML IV ONE (14:40)
[2025-02-08] MEDS ORDERED: KETOROLAC TROMETH 30 MG/ML 1ML VIAL ONE (15:14)
[2025-02-08] MEDS: IOHEXOL 300 MG/ML 100ML BOTTLE IJ ONE (15:35)
[2025-02-08] MEDS ORDERED: MIDAZOLAM HCL 2MG/2ML 2ml VIAL (1mg/ml) ONE (15:59)
[2025-02-08] MEDS ORDERED: ROCURONIUM 10MG/ML 10ML VIAL IV ONE (15:59)
[2025-02-08] MEDS ORDERED: SODIUM CHLORIDE LOCK 0 ML ONE (15:59)
[2025-02-08] MEDS ORDERED: ONDANSETRON HCL 4 MG/2 ML VIAL ONE (15:59)
[2025-02-08] MEDS ORDERED: PROPOFOL 10 MG/ML 20 ML IV ONE (15:59)
[2025-02-08] MEDS ORDERED: LIDOCAINE HCL 2% TOP JELLY 5ML TOP ONE (15:59)
[2025-02-08] MEDS ORDERED: KETAMINE 50mg/ML 1ml syringe ONE (16:01)
[2025-02-08] MEDS ORDERED: fentaNYL CITRATE 100 MCG/2 ML VL ONE (16:01)
[2025-02-08] MEDS ORDERED: METOCLOPRAMIDE HCL 5MG/ml INJ 2ml VIAL IV PRN (16:15)
[2025-02-08] MEDS ORDERED: HYDROmorphone HCL 2 MG/ML VL/or syr IV PRN ×2 (16:15)
[2025-02-08] MEDS ORDERED: MORPHINE SULFATE INJ 2 MG/ml SYRG IV PRN (16:15)
[2025-02-08] MEDS ORDERED: MORPHINE SULFATE 4 MG/ML SYR/VIAL IV PRN (16:15)
[2025-02-08 16:54] VITALS: BP 102/69; PULSE 74; RESP 18; TEMP 97.9; O2SAT 97
[2025-02-08 17:07] VITALS: BP 102/69; PULSE 74; RESP 18; TEMP 98.3; O2SAT 97
[2025-02-08] MEDS: TAMSULOSIN HYDROCHLORIDE 0.4 MG CAP PO SCH (17:14)
[2025-02-08] MEDS: KETOROLAC TROMETH 30 MG/ML 1ML VIAL IV PRN (17:18)
[2025-02-08] MEDS ORDERED: ATOR20TA PO (17:47)
[2025-02-08] MEDS ORDERED: SEMA2INJ3 SC (17:47)
[2025-02-08] MEDS ORDERED: SERT50TA PO (17:47)
[2025-02-08 20:00] VITALS: PULSE 77; RESP 19; O2SAT 97
[2025-02-08 21:00] VITALS: BP 113/71; PULSE 77; RESP 19; TEMP 98.5; O2SAT 97
[2025-02-09 01:00] VITALS: BP 95/61; PULSE 72; RESP 17; TEMP 98.5; O2SAT 96
[2025-02-09] MEDS: HYDROcodone-ACET 5/325MG TAB PO PRN (03:08)
[2025-02-09 05:00] VITALS: BP 114/79; PULSE 71; RESP 19; TEMP 98.8; O2SAT 97
[2025-02-09 06:21] LABS: Hematocrit 43.5 % (41.0-53.0); Hemoglobin 14.6 g/dL (13.5-17.5); Mean Corpuscular Hemoglobin 31.7 pg (28.0-32.0); Mean Corpuscular Volume 94.6 fL (80.0-100.0); Nucleated Red Blood Cells % 0.3 %
[2025-02-09 06:42] LABS: Alanine Aminotransferase 11 U/L (7-40); Alkaline Phosphatase 82 U/L (46-116); Anion Gap 3 (5-15); BUN/Creatinine Ratio 14.8 (10.0-20.0); Blood Urea Nitrogen 17 mg/dL (9-23); Calcium 9.8 mg/dL (8.7-10.4); Carbon Dioxide 26 mmol/L (20-31); Glucose 78 mg/dL (74-106); Sodium 144 mmol/L (136-145)
[2025-02-09 06:43] LABS: Albumin 3.5 g/dL (3.2-4.8); Bilirubin, Total 0.4 mg/dL (0.2-1.0)
[2025-02-09 06:44] LABS: Chloride 115 mmol/L (98-107); Total Protein 5.6 g/dL (5.7-8.2)
[2025-02-09 06:50] LABS: Potassium 5.7 mmol/L (3.5-5.1)
== END 2025-02-09 09:28 | disposition left against medical advice (07) | DRG 690 ==
LOC: ER 08:04 → OVERFLOW 13:42 → WEST WING 16:54
PROVIDERS: ATTEND Emergency Medicine
DX: N13.6 Pyonephrosis (principal); F17.210 Nicotine dependence, cigarettes, uncomplicated; N20.2 Calculus of kidney with calculus of ureter; Z53.29 Procedure and treatment not carried out because of patient's decision for other reasons; K31.84 Gastroparesis; Z79.899 Other long term (current) drug therapy
CPT/HCPCS: 36415; 74176; 80048; 80053; 81001; 85025; 96361; 96374; 96375; 99291; G0378; J1885; J2250; J2405; J2704

== ENCOUNTER 2025-02-16 06:49 | Emergency (ER) | payer OTHER ==
[~2025-02-16] VITALS: Ht 193 cm; Wt 137.0 kg
[~2025-02-16 06:49] MED LIST: ATOR20TA PO; SEMA2INJ3 SC; SERT50TA PO
--- NOTE | 2025-02-16 07:18 | ED.PDOC ---
General HPI Comments This is a 59 year old male presenting to the ED with chief complaint of flank pain and surgical admission. Patient reports that he has had 6/10 right sided flank pain for about a week, being seen on 02/08 for the same concern. Patient relays that he was told he had a kidney stone and was admitted to have lithotripsy performed by Dr. Huff, however, he was unable to go through the surgery due to being on Ozempic that week. Patient states he was advised by Dr. Huff to return today for readmission to the hospital for lithotripsy to be performed. Patient denies any dysuria, hematuria, abdominal pain, N/V, or fever. Chief Complaint: Medical Clearance Time Seen by MD: 07:16 Primary Care Provider: CAYETANO Reviewed notes: Nurses Notes, Medications, Allergies Allergies: Coded Allergies: NO KNOWN ALLERGIES (Unverified , 01/04/19) Home Meds Reported Medications Atorvastatin Calcium (Lipitor) 20 Mg Tab, 1 TAB PO DAILY, #90 TAB 1 Refill 02/08/25 Semaglutide (Ozempic) 2 Mg/3 Ml Inj, 2 MG SC, INJ 02/08/25 Sertraline Hcl (Zoloft) 50 Mg Tab, 50 MG PO, TAB 02/08/25 Information Source: Patient Mode of Arrival: Ambulatory Severity: Moderate Timing: Days Duration: Since onset Prehospital treatment: None Onset: Spontaneous Symptoms: None History of: Kidney stone Location: (R) Flank associated signs and symptoms: Flank Pain Past Medical History PAST MEDICAL HISTORY: Kidney Stones Surgical History: Hernia Repair Family History Family History: Reviewed,noncontributory to illness, No family hx of Cancer, No family hx of DM Social History Smoker: Cigarettes, Greater Than 1 Pack/Day Alcohol: Occasionally Drugs: Denies Drug Use Lives In: Home Constitutional: denies: chills, diaphoresis, fatigue, fever, malaise, sweats, weakness, others EENTM: denies: blurred vision, double vision, ear bleeding, ear discharge, ear drainage, ear pain, ear ringing, eye pain, eye redness, hearing loss, mouth pain, mouth swelling, nasal discharge, nose bleeding, nose congestion, nose pain, photophobia, tearing, throat pain, throat swelling, voice changes, others Respiratory: denies: cough, hemoptysis, orthopnea, SOB at rest, shortness of breath, SOB with excertion, stridor, wheezing, others Cardiovascular: denies: chest pain, dizzy spells, diaphoresis, Dyspnea on exertion, edema, irregular heart beat, left arm pain, lightheadedness, palpitations, PND, syncope, others Gastrointestinal: denies: abdomen distended, abdominal pain, blood streaked bowels, constipated, diarrhea, dysphagia, difficulty swallowing, hematemesis, melena, nausea, poor appetite, poor fluid intake, rectal bleeding, rectal pain, vomiting, others Genitourinary: reports: flank pain; denies: burning, dysuria, frequency, hematuria, incontinence, penile discharge, penile sore, pain, testicle pain, testicle swelling, urgency, others Neurological: denies: dizziness, fainting, headache, left sided numbness, left sided weakness, numbness, paresthesia, pre-existing deficit, right sided numbness, right sided weakness, seizure, speech problems, tingling, tremors, weakness, others Musculoskeletal: denies: back pain, gout, joint pain, joint swelling, muscle pain, muscle stiffness, neck pain, others Integumetry: denies: bruises, change in color, change in hair/nails, dryness, laceration, lesions, lumps, rash, wounds, others Allergic/Immunocompromised: denies: Difficulty Healing, Frequent Infections, Hives, Itching, others Hematologic/Lymphatic: denies: anemia, blood clots, easy bleeding, easy bruising, swollen glands, others Endocrine: denies: excessive hunger, excessive sweating, excessive thirst, excessive urination, flushing, intolerance to cold, intolerance to heat, unexplained weight gain, unexplained weight loss, others Psychiatric: denies: anxiety, bipolar disorder, depression, hopeless, panic disorder, schizophrenia, sleepless, suicidal, others All Other Systems: Reviewed and Negative Physical Exam General Appearance: Obese HEENT: Normal ENT Inspection, Pharynx Normal, TMs Normal Neck: Full Range of Motion, Non-Tender, Normal, Normal Inspection Respiratory: Chest Non-Tender, Lungs Clear, No Accessory Muscle Use, No Respiratory Distress, Normal Breath Sounds Cardiovascular: No Edema, No JVD, No Murmur, No Gallop, Normal Peripheral Pulses, Regular Rate/Rhythm Breast Exam: Deferred Gastrointestinal: No Organomegaly, Non Tender, No Pulsatile Mass, Normal Bowel Sounds, Soft Genitalia: Deferred Pelvic: Deferred Rectal: Deferred Extremities: No calf tenderness, Normal capillary refill, No pedal edema Musculoskeletal : Location: Right Extremity Location: Back Apperance: Tenderness: Moderate Neurologic: Alert, commodity merchant II-XII nml as Tested, No Motor Deficits, Normal Affect, Normal Mood, No Sensory Deficits Cerebellar Function: Normal Reflexes: Normal Skin: Dry, Normal Color, Warm Lymphatic: No Adenopathy Was a procedure done? Was a procedure done?: No Differential Diagnosis Kidney stone (Female): Musculoskeletal pain Kidney stone (Male): Urolithiasis X-Ray, Labs, Meds, VS Vital Signs Date Time Temp Pulse Resp B/P (MAP) Pulse Ox O2 Delivery O2 Flow Rate FiO2 02/16/25 06:56 97.4 85 20 141/94 96 97.4 Lab Test 02/16/25 07:33 Range/Units White Blood Count 4.8 4.4-10.8 10^3/uL Red Blood Count 5.26 4.5-5.90 10^6/uL Hemoglobin 16.5 13.5-17.5 g/dL Hematocrit 49.9 41.0-53.0 % Mean Corpuscular Volume 94.9 80.0-100.0 fL Mean Corpuscular Hemoglobin 31.4 28.0-32.0 pg Mean Corpuscular Hemoglobin Concent 33.1 32.0-36.0 g/dL Red Cell Distribution Width 14.3 11.8-14.3 % Platelet Count 157 140-450 10^3/uL Mean Platelet Volume 8.3 6.9-10.8 fL Neutrophils (%) (Auto) 65.5 37.0-80.0 % Lymphocytes (%) (Auto) 19.8 10.0-50.0 % Monocytes (%) (Auto) 8.4 0.0-12.0 % Eosinophils (%) (Auto) 5.0 0.0-7.0 % Basophils (%) (Auto) 1.3 0.0-2.0 % Neutrophils # (Auto) 3.2 1.6-8.6 10 ^3/uL Lymphocytes # (Auto) 1.0 0.4-5.4 10 ^3/uL Monocytes # (Auto) 0.4 0-1.3 10 ^3/uL Eosinophils # (Auto) 0.2 0-0.8 10 ^3/uL Basophils # (Auto) 0.1 0-0.2 10 ^3/uL Nucleated Red Blood Cells 0.1 % Prothrombin Time 10.3 9.3-11.8 sec Prothrombin Time INR 0.97 0.9-1.15 Activated Partial Thromboplast Time 30.4 24.5-34.5 SEC Sodium Level 141 136-145 mmol/L Potassium Level 4.1 3.5-5.1 mmol/L Chloride Level 112 H 98-107 mmol/L Carbon Dioxide Level 20 20-31 mmol/L Anion Gap 9 5-15 Blood Urea Nitrogen 10 9-23 mg/dL Creatinine 1.13 0.700-1.30 mg/dL Glomerular Filtration Rate Calc 75 >90 mL/min BUN/Creatinine Ratio 8.8 L 10.0-20.0 Serum Glucose 83 74-106 mg/dL Calcium Level 9.9 8.7-10.4 mg/dL IV Hep-Lock is being established The patient has a CBC that has within normal limits The chemistry panel is within normal limits. The INR is 0.97 The patient is being admitted to the hospitalist at this time. We are contacting Dr. Huff because the patient is to undergo lithotripsy. At this time, the patient is being admitted to the hospitalist Time of 1ST Reevaluation: 08:47 Reevaluation 1ST: Unchanged Patient Education/Counseling: Diagnosis, Treatment, Prognosis Family Education/Counseling: No Family Present SEPSIS Sepsis Screen Date sepsis recognized/suspect: Feb 23, 2025 Time Sepsis recognized/suspect: 0659 Recent Procedure: No On Antibiotic Therapy: No Respiratory Rate >20: No Heart Rate >90: No Temp<36 C (96.8 F) or >38.3 C: No SBP <90 or MAP <65 mmHG: No New Acute Mental Status Change: No Is the patient on CPAP, BIPAP,: No Physician Orders Heplock Iv (02/16/25 07:22) Electrocardigram (02/16/25 07:24) Vital Signs Date Time Temp Pulse Resp B/P (MAP) Pulse Ox O2 Delivery O2 Flow Rate FiO2 02/16/25 06:56 97.4 85 20 141/94 96 97.4 Laboratory Tests Test 02/16/25 07:33 White Blood Count 4.8 10^3/uL (4.4-10.8) Departure 1 Departure Time of Disposition: 08:47 Impression: Primary Impression: Hydronephrosis Qualified Codes: N13.30 - Unspecified hydronephrosis Additional Impressions: Right flank pain Ureterolithiasis Disposition: ADMITTED INPATIENT Condition: Fair Critical Care Note Critical Care Time?: No Stability Stability form required: No Heart Score Heart Score: Heart Score Response (Comments) Value History N/A 0 EKG N/A 0 Age N/A 0 Risk Factors N/A 0 Troponin N/A 0 Total 0 I personally scribed for SANDY MARTINEZ MD ([email or web address]) on 02/16/25 at 07:18. Electronically submitted by Curry Albert ([email or web address]). SANDY MARTINEZ MD Feb 16, 2025 07:18
[2025-02-16] MEDS: SODIUM CHLORIDE 0.9% 1,000 ML IV ONE (07:30)
[2025-02-16 08:12] LABS: Anion Gap 9 (5-15); Potassium 4.1 mmol/L (3.5-5.1); Sodium 141 mmol/L (136-145)
[2025-02-16 08:13] LABS: Calcium 9.9 mg/dL (8.7-10.4); Carbon Dioxide 20 mmol/L (20-31); Chloride 112 mmol/L (98-107); Hematocrit 49.9 % (41.0-53.0); Hemoglobin 16.5 g/dL (13.5-17.5); Mean Corpuscular Hemoglobin 31.4 pg (28.0-32.0); Mean Corpuscular Volume 94.9 fL (80.0-100.0); Nucleated Red Blood Cells % 0.1 %
[2025-02-16 08:18] LABS: BUN/Creatinine Ratio 8.8 (10.0-20.0); Blood Urea Nitrogen 10 mg/dL (9-23); Glucose 83 mg/dL (74-106)
[2025-02-16 08:29] LABS: INR 0.97 (0.9-1.15); Partial Thromboplastin Time 30.4 SEC (24.5-34.5); Prothrombin Time 10.3 sec (9.3-11.8)
[2025-02-16 09:05] VITALS: BP 138/92; PULSE 79; RESP 17; TEMP 98.9; O2SAT 96
== END 2025-02-16 09:54 | disposition home or self-care (01) ==
LOC: ER 06:49
DX: N13.2 Hydronephrosis with renal and ureteral calculous obstruction (principal); R10.A1 Flank pain, right side; F17.210 Nicotine dependence, cigarettes, uncomplicated; F10.90 Alcohol use, unspecified, uncomplicated; Z79.899 Other long term (current) drug therapy; Z87.442 Personal history of urinary calculi; Z98.890 Other specified postprocedural states
CPT/HCPCS: 36415; 80048; 85025; 85610; 85730; 96360; 96361; 99283; J7030

== ENCOUNTER 2025-02-20 13:26 | Inpatient (IN) | payer OTHER ==
[~2025-02-20] VITALS: Ht 193 cm; Wt 137.7 kg
--- NOTE | 2025-02-20 14:15 | ED.PDOC ---
General HPI Comments Patient is a 59-year-old male with past medical history of dyslipidemia, nephrolithiasis who comes in due to right-sided flank pain. According to the patient, he has been experiencing right-sided flank pain for the past 2 weeks, he describes the pain as constant, localized to right flank with radiation to the back, 7/10 intensity, worsened with lying on the ipsilateral side without any relieving factors and associated symptoms. Patient left COUNTS INCLUDE 234 BEDS AT THE [facility] on 02/09/2025 after being noted to have a 7 mm stone at right UPJ and a 5 mm in left UPJ on CT scan, was seen by Dr. Huff in urology consultation, however, patient had recently started taking Ozempic and was not an ideal candidate for anesthesia at the time due to slow gastric emptying related to Ozempic use. Per patient, he was told by Dr. Huff that he will undergo ESWL with possible nephrostomy tube placement tomorrow which is what prompted this visit to the ED. Notes having similar symptoms in 2019 when he subsequently underwent ESWL. On review of systems patient is complaining of dysuria and oliguria. Chief Complaint: Flank Pain Time Seen by MD: 14:00 Primary Care Provider: CAYETANO Allergies: Coded Allergies: NO KNOWN ALLERGIES (Unverified , 01/04/19) Home Meds Reported Medications Atorvastatin Calcium (Lipitor) 20 Mg Tab, 1 TAB PO DAILY, #90 TAB 1 Refill 02/08/25 Semaglutide (Ozempic) 2 Mg/3 Ml Inj, 2 MG SC, INJ 02/08/25 Sertraline Hcl (Zoloft) 50 Mg Tab, 50 MG PO, TAB 02/08/25 Mode of Arrival: Ambulatory Past Medical History PAST MEDICAL HISTORY: Kidney Stones Past Medical History (Contd): Dyslipidemia Surgical History: Hernia Repair Surgical History (Cont'd) Hernia repair surgery Family History Family History: Reviewed,noncontributory to illness, No family hx of Cancer, No family hx of DM Social History Smoker: Cigarettes, Greater Than 1 Pack/Day Alcohol: Occasionally Drugs: Denies Drug Use Lives In: Home Constitutional: denies: chills, diaphoresis, fatigue, fever, malaise, sweats, weakness, others EENTM: denies: blurred vision, double vision, ear bleeding, ear discharge, ear drainage, ear pain, ear ringing, eye pain, eye redness, hearing loss, mouth pain, mouth swelling, nasal discharge, nose bleeding, nose congestion, nose pain, photophobia, tearing, throat pain, throat swelling, voice changes, others Respiratory: denies: cough, hemoptysis, orthopnea, SOB at rest, shortness of breath, SOB with excertion, stridor, wheezing, others Cardiovascular: denies: chest pain, dizzy spells, diaphoresis, Dyspnea on exertion, edema, irregular heart beat, left arm pain, lightheadedness, palpitations, PND, syncope, others Gastrointestinal: denies: abdomen distended, abdominal pain, blood streaked bowels, constipated, diarrhea, dysphagia, difficulty swallowing, hematemesis, melena, nausea, poor appetite, poor fluid intake, rectal bleeding, rectal pain, vomiting, others Genitourinary: reports: dysuria, others (Oliguria); denies: burning, flank pain, frequency, hematuria, incontinence, penile discharge, penile sore, pain, testicle pain, testicle swelling, urgency Neurological: denies: dizziness, fainting, headache, left sided numbness, left sided weakness, numbness, paresthesia, pre-existing deficit, right sided numbness, right sided weakness, seizure, speech problems, tingling, tremors, weakness, others Musculoskeletal: denies: back pain, gout, joint pain, joint swelling, muscle pain, muscle stiffness, neck pain, others Integumetry: denies: bruises, change in color, change in hair/nails, dryness, laceration, lesions, lumps, rash, wounds, others Allergic/Immunocompromised: denies: Difficulty Healing, Frequent Infections, Hives, Itching, others Hematologic/Lymphatic: denies: anemia, blood clots, easy bleeding, easy bruising, swollen glands, others Endocrine: denies: excessive hunger, excessive sweating, excessive thirst, excessive urination, flushing, intolerance to cold, intolerance to heat, unexplained weight gain, unexplained weight loss, others Psychiatric: denies: anxiety, bipolar disorder, depression, hopeless, panic disorder, schizophrenia, sleepless, suicidal, others Physical Exam General Appearance: No Apparent Distress, Normal HEENT: Normal ENT Inspection Neck: Non-Tender, Normal Respiratory: Chest Non-Tender, Lungs Clear, No Accessory Muscle Use, No Respiratory Distress Cardiovascular: No Murmur, No Gallop, Tachycardia Breast Exam: None, Deferred Gastrointestinal: Non Tender, No Pulsatile Mass, Normal Bowel Sounds Genitalia: Deferred Pelvic: Deferred Rectal: Rectal Exam not done Extremities: No calf tenderness, Non-tender, No pedal edema Neurologic: Alert, None, Normal Affect, Normal Mood, No Sensory Deficits Cerebellar Function: NOT DONE Reflexes: NOT DONE Skin: Dry, Normal Color, Warm Lymphatic: NOT DONE Was a procedure done? Was a procedure done?: No Differential Diagnosis Kidney stone (Female): N/A Kidney stone (Male): Pyelonephritis, Urinary obstruction, Urolithiasis Urinary Problem (Male): Urinary Retention X-Ray, Labs, Meds, VS Vital Signs Date Time Temp Pulse Resp B/P (MAP) Pulse Ox O2 Delivery O2 Flow Rate FiO2 02/20/25 13:28 98.8 104 16 124/86 100 98.8 Time of 1ST Reevaluation: 14:20 Reevaluation 1ST: Unchanged Patient Education/Counseling: Diagnosis, Treatment Family Education/Counseling: No Family Present SEPSIS Sepsis Screen Date sepsis recognized/suspect: Feb 20, 2025 Time Sepsis recognized/suspect: 1331 Recent Procedure: No On Antibiotic Therapy: No Respiratory Rate >20: No Heart Rate >90: No Temp<36 C (96.8 F) or >38.3 C: No SBP <90 or MAP <65 mmHG: No New Acute Mental Status Change: No Is the patient on CPAP, BIPAP,: No Physician Orders Complete Blood Count (02/20/25 14:06) Basic Metabolic Panel (02/20/25 14:06) Lactic Acid W/ Reflex Order (02/20/25 14:06) Urinalysis (02/20/25 14:06) * Urology Consult (02/20/25 14:06) Vital Signs Date Time Temp Pulse Resp B/P (MAP) Pulse Ox O2 Delivery O2 Flow Rate FiO2 02/20/25 13:28 98.8 104 16 124/86 100 98.8 Departure 1 Departure Time of Disposition: 14:20 Impression: Primary Impression: Hydronephrosis Additional Impressions: Ureterolithiasis Right flank pain Ureteral colic Disposition: ADMITTED INPATIENT Condition: Guarded Critical Care Note Critical Care Time?: No Stability Stability form required: ELEONORA Rubio RESIDENT Feb 20, 2025 14:15
[2025-02-20] MEDS ORDERED: ACETAMINOPHEN 325 MG TAB PO PRN (15:00)
[2025-02-20 15:02] LABS: Hematocrit 51.6 % (41.0-53.0); Hemoglobin 17.4 g/dL (13.5-17.5); Mean Corpuscular Hemoglobin 31.8 pg (28.0-32.0); Mean Corpuscular Volume 94.2 fL (80.0-100.0); Nucleated Red Blood Cells % 0.1 %
[2025-02-20 15:14] LABS: Potassium 4.7 mmol/L (3.5-5.1); Sodium 144 mmol/L (136-145)
[2025-02-20 15:15] LABS: Anion Gap 10 (5-15); Carbon Dioxide 22 mmol/L (20-31)
[2025-02-20 15:17] LABS: Calcium 10.4 mg/dL (8.7-10.4); Chloride 112 mmol/L (98-107)
[2025-02-20 15:20] LABS: Glucose 97 mg/dL (74-106)
[2025-02-20 15:21] LABS: BUN/Creatinine Ratio 15.2 (10.0-20.0); Blood Urea Nitrogen 21 mg/dL (9-23)
--- NOTE | 2025-02-20 15:44 | DVHHPRES ---
History of Present Illness Resident Creating Document: JOSE LÓPEZ RESIDENT History of Present Illness Patient is a 59-year-old male with past medical history of dyslipidemia, nephrolithiasis who comes in due to right-sided flank pain. According to the patient, he has been experiencing right-sided flank pain for the past 2 weeks, he describes the pain as constant with intermittent episodes of intense pain, localized to right flank with radiation to the back and to the right groin, moderate 7/10 in intensity without any relieving factors and associated symptoms. Patient was seen in the ER on 02/08/[address] abdomen pelvis which showed mild right hydronephrosis with 7 mm stone in the right UPJ, 5 mm stone in the left UPJ and additional nonobstructing bilateral renal stones. He was evaluated by Dr. Huff from Urology during that admission but has he started taking Ozempic that day and patient was not cleared from Anesthesiology to undergo surgery. Per patient, he was told by Dr. Huff that he will undergo ESWL with possible nephrostomy tube placement tomorrow which is what prompted this visit to the ED. Patient reported to have nephrolithiasis in 2019 and underwent right ESWL. Past Medical History Dyslipidemia, morbid obesity, nephrolithiasis, depression Past Surgical History Right ESWL in 2019 Past Social History Smokes cigarettes more than 1 pack per day, occasional alcohol use, denies any other drug use Review of Systems Review of Systems Patient reports of right flank pain radiating to the right groin moderate in intensity 7/10 Denies nausea, vomiting, fever, chills, any other abdominal pain Flank pain radiates to the back sometimes Allergies: Coded Allergies: NO KNOWN ALLERGIES (Unverified , 01/04/19) Medications Current Medications Medications Dose Ordered Sig/Veronica Route Start Time Stop Time Status Last Admin Dose Admin Ondansetron HCl 4 mg Q6HPRN PRN IV 02/20/25 15:00 UNV Acetaminophen/ Hydrocodone Bitart 1 tab Q6HP PRN PO 02/20/25 15:00 UNV Acetaminophen 650 mg Q6HP PRN PO 02/20/25 15:00 UNV Tamsulosin HCl 0.4 mg QPM PO 02/20/25 18:00 UNV Exam Vital Signs Vital Signs Date Time Temp Pulse Resp B/P (MAP) Pulse Ox O2 Delivery O2 Flow Rate FiO2 02/20/25 13:28 98.8 104 16 124/86 100 98.8 Exam Gen - no pallor, no icterus, no edema . Skin - Patients skin is warm and dry. HEENT - normocephalic, atraumatic, moist mucous membranes. Neck - full ROM, no LAD, no JVD Pulmonary - B/L clear breath sounds cardiovascular - regular S1,S2 heard, no added sounds, no murmurs heard. GI - soft abdomen with mild tenderness on deep palpation in the right flank. Bowel sounds normoactive Neurological - Patient is A/O X 4 . Bilateral upper extremity strength 5/5, bilateral lower extremity strength 5/5, no facial droop, normal speech, no tremor, no sensory deficiets. Labs/Xrays Labs Test 02/20/25 14:25 Range/Units White Blood Count 8.4 # 4.4-10.8 10^3/uL Red Blood Count 5.48 4.5-5.90 10^6/uL Hemoglobin 17.4 13.5-17.5 g/dL Hematocrit 51.6 41.0-53.0 % Mean Corpuscular Volume 94.2 80.0-100.0 fL Mean Corpuscular Hemoglobin 31.8 28.0-32.0 pg Mean Corpuscular Hemoglobin Concent 33.8 32.0-36.0 g/dL Red Cell Distribution Width 14.3 11.8-14.3 % Platelet Count 191 140-450 10^3/uL Mean Platelet Volume 7.9 6.9-10.8 fL Neutrophils (%) (Auto) 71.0 37.0-80.0 % Lymphocytes (%) (Auto) 19.4 10.0-50.0 % Monocytes (%) (Auto) 5.9 0.0-12.0 % Eosinophils (%) (Auto) 3.1 0.0-7.0 % Basophils (%) (Auto) 0.6 0.0-2.0 % Neutrophils # (Auto) 6.0 1.6-8.6 10 ^3/uL Lymphocytes # (Auto) 1.6 0.4-5.4 10 ^3/uL Monocytes # (Auto) 0.5 0-1.3 10 ^3/uL Eosinophils # (Auto) 0.3 0-0.8 10 ^3/uL Basophils # (Auto) 0.1 0-0.2 10 ^3/uL Nucleated Red Blood Cells 0.1 % Sodium Level 144 136-145 mmol/L Potassium Level 4.7 3.5-5.1 mmol/L Chloride Level 112 H 98-107 mmol/L Carbon Dioxide Level 22 20-31 mmol/L Anion Gap 10 5-15 Blood Urea Nitrogen 21 9-23 mg/dL Creatinine 1.38 H 0.700-1.30 mg/dL Glomerular Filtration Rate Calc 59 >90 mL/min BUN/Creatinine Ratio 15.2 10.0-20.0 Serum Glucose 97 74-106 mg/dL Lactic Acid Level 1.4 0.4-2.0 mmol/L Calcium Level 10.4 8.7-10.4 mg/dL SEPSIS Sepsis Screen Date sepsis recognized/suspect: Feb 20, 2025 Time Sepsis recognized/suspect: 1330 Recent Procedure: No On Antibiotic Therapy: No Respiratory Rate >20: No Heart Rate >90: No Temp<36 C (96.8 F) or >38.3 C: No SBP <90 or MAP <65 mmHG: No New Acute Mental Status Change: No Is the patient on CPAP, BIPAP,: No Physician Orders Urinalysis (02/20/25 14:06) * Urology Consult (02/20/25 14:06) Admit (02/20/25 15:00) Oxygen By Nasal Cannula (02/20/25 15:00) Stat Ekg For Chest Pain (02/20/25 15:00) Notify Md Of Changes From Base (02/20/25 15:00) Ondansetron Hcl (Zofran) (02/20/25 15:00) Hydrocodone-Acet 7.5/325mg Tab ([place] 7. (02/20/25 15:00) Acetaminophen Tablet (Tylenol Tablet) (02/20/25 15:00) Tamsulosin Hydrochloride (Flomax) (02/20/25 18:00) Npo After Midnight (02/20/25 15:00) Npo (Nothing By Mouth) Diet (02/21/25 Breakfast) PTPTT (02/20/25 15:00) Cardiac Diet-2gna,Lofat,Lochol (02/20/25 Dinner) Drug Screen (02/20/25 15:00) Vital Signs Date Time Temp Pulse Resp B/P (MAP) Pulse Ox O2 Delivery O2 Flow Rate FiO2 02/20/25 13:28 98.8 104 16 124/86 100 98.8 Laboratory Tests Test 02/20/25 14:25 Lactic Acid Level 1.4 mmol/L (0.4-2.0) White Blood Count 8.4 10^3/uL (4.4-10.8) # Assessment/Plan Assessment/Plan Bilateral Nephroureterolithiasis Right hydronephrosis ANTONIA on CKD likely due to VMN/obstruction - CT abdomen pelvis done on 02/08 showed mild right hydronephrosis with 7 mm stone in the right UPJ, 5 mm stone in the left UPJ and additional nonobstructing bilateral renal stones - urology consulted, patient is planned for possible ESWL/PCN tomorrow - tamsulosin - pain management - 1 L IV fluid, encourage oral intake - NPO after midnight History of MDD - continue on sertraline 150 mg daily Goals of care discussed with the patient for over 17 minutes Full code Time spent: 31 minutes Plan discussed with Dr. Plascencia Plan discussed with: Patient My Orders Orders - JOSE LÓPEZ RESIDENT Procedure Category Date Status Time Admit ADMIT 02/20/25 Transmitted 15:00 Oxygen By Nasal RT 02/20/25 Transmitted Cannula 15:00 Stat Ekg For Chest JACINTA 02/20/25 In Process Pain 15:00 Notify Of Changes JACINTA 02/20/25 In Process From Base 15:00 Ondansetron Hcl PHA 02/20/25 Logged (Zofran) 15:00 Hydrocodone-Acet PHA 02/20/25 Logged 7.5/325mg Tab ([place] 15:00 Acetaminophen Tablet PHA 02/20/25 Logged (Tylenol Tablet) 15:00 Tamsulosin PHA 02/20/25 Logged Hydrochloride (Flomax) 18:00 Npo After Midnight JACINTA 02/20/25 In Process 15:00 Npo (Nothing By DIET 02/21/25 Transmitted Mouth) Diet Breakfast PTPTT LAB 02/20/25 In Process 15:00 Cardiac DIET 02/20/25 Transmitted Diet-2gna,Lofat,Lochol Dinner Drug Screen LAB 02/20/25 Logged 15:00 Date of Service: Feb 20, 2025 Billing Provider: STEPHEN PLASCENCIA MD Common Visit Codes: [id number] INP/OBS CARE (HIGH) Secondary Visit Codes: [id number] CARE PLAN 30 MINUTES JOSE LÓPEZ RESIDENT Feb 20, 2025 15:44 STEPHEN PLASCENCIA MD Feb 20, 2025 22:25
[2025-02-20 15:47] LABS: INR 0.96 (0.9-1.15); Partial Thromboplastin Time 29.2 SEC (24.5-34.5); Prothrombin Time 10.2 sec (9.3-11.8)
[2025-02-20 17:17] VITALS: PULSE 99; RESP 16; O2SAT 97
[2025-02-20] MEDS: HYDROcodone-ACET 7.5/325MG TAB PO PRN (17:24)
[2025-02-20] MEDS: PANTOPRAZOLE 40 MG TAB PO ONE (17:24)
--- NOTE | 2025-02-20 20:21 | DVHINCON2 ---
Date of service: Feb 20, 2025 Referring Physician Hospitalist Reason for Consultation Bilateral nephroureteral lithiasis History of Present Illness 59-year-old male with past medical history of dyslipidemia, nephrolithiasis who comes in due to right-sided flank pain. According to the patient, he has been experiencing right-sided flank pain for the past 2 weeks, he describes the pain as constant, localized to right flank with radiation to the back, 7/10 intensity, worsened with lying on the ipsilateral side without any relieving factors and associated symptoms. Patient left [facility] on 02/09/2025 after being noted to have a 7 mm stone at right UPJ and a 5 mm in left UPJ on CT scan, was seen by me for urology consultation, however, patient had recently started taking Ozempic and was not a candidate for anesthesia at the time due to slow gastric emptying related to Ozempic use. Notes having similar symptoms in 2019 when he subsequently underwent ESWL. On review of systems patient is complaining of dysuria and oliguria. Chief Complaint: Flank Pain Primary Care Provider: CAYETANO Allergies: Coded Allergies: NO KNOWN ALLERGIES (Unverified , 01/04/19) Home Meds Reported Medications Atorvastatin Calcium (Lipitor) 20 Mg Tab, 1 TAB PO DAILY, #90 TAB 1 Refill 02/08/25 Semaglutide (Ozempic) 2 Mg/3 Ml Inj, 2 MG SC, INJ 02/08/25 Sertraline Hcl (Zoloft) 50 Mg Tab, 50 MG PO, TAB 02/08/25 Mode of Arrival: Ambulatory Past Medical History Kidney Stones Past Medical History (Contd): Dyslipidemia Past Surgical History Hernia Repair Surgical History (Cont'd) Hernia repair surgery Family History: Patient reports no known family medical history. Allergies: Coded Allergies: NO KNOWN ALLERGIES (Unverified , 01/04/19) Home Meds Reported Medications Atorvastatin Calcium (Lipitor) 20 Mg Tab, 1 TAB PO DAILY, #90 TAB 1 Refill 02/08/25 Semaglutide (Ozempic) 2 Mg/3 Ml Inj, 2 MG SC, INJ 02/08/25 Sertraline Hcl (Zoloft) 50 Mg Tab, 50 MG PO, TAB 02/08/25 Current Medications Current Medications Medications (Trade) Dose Ordered Sig/Veronica Route PRN Reason Start Time Stop Time Status Last Admin Ondansetron HCl (Zofran) 4 mg Q6HPRN PRN IV NAUSEA / VOMITING 02/20/25 15:00 Acetaminophen/ Hydrocodone Bitart ([place] 7.5/325MG Tab) 1 tab Q6HP PRN PO MODERATE PAIN (4-6 PAIN SCALE) 02/20/25 15:00 02/20/25 17:24 Acetaminophen (Tylenol Tablet) 650 mg Q6HP PRN PO PAIN SCALE 1-3 OR TEMP>100.4 02/20/25 15:00 Tamsulosin HCl (Flomax) 0.4 mg QPM PO 02/20/25 18:00 Pantoprazole Sodium (Protonix Tablet) 40 mg DAILY@0600 PO 02/21/25 06:00 Sertraline HCl (Zoloft) 150 mg DAILY PO 02/21/25 10:00 Review of Systems Constitutional: denies: chills, diaphoresis, fatigue, fever, malaise, sweats, weakness, others EENTM: denies: blurred vision, double vision, ear bleeding, ear discharge, ear drainage, ear pain, ear ringing, eye pain, eye redness, hearing loss, mouth pain, mouth swelling, nasal discharge, nose bleeding, nose congestion, nose pain, photophobia, tearing, throat pain, throat swelling, voice changes, others Respiratory: denies: cough, hemoptysis, orthopnea, SOB at rest, shortness of breath, SOB with excertion, stridor, wheezing, others Cardiovascular: denies: chest pain, dizzy spells, diaphoresis, Dyspnea on exertion, edema, irregular heart beat, left arm pain, lightheadedness, palpitations, PND, syncope, others Gastrointestinal: denies: abdomen distended, abdominal pain, blood streaked bowels, constipated, diarrhea, dysphagia, difficulty swallowing, hematemesis, melena, nausea, poor appetite, poor fluid intake, rectal bleeding, rectal pain, vomiting, others Genitourinary: reports: dysuria, others (Oliguria); denies: burning, flank pain, frequency, hematuria, incontinence, penile discharge, penile sore, pain, testicle pain, testicle swelling, urgency Neurological: denies: dizziness, fainting, headache, left sided numbness, left sided weakness, numbness, paresthesia, pre-existing deficit, right sided numbness, right sided weakness, seizure, speech problems, tingling, tremors, weakness, others Musculoskeletal: denies: back pain, gout, joint pain, joint swelling, muscle pain, muscle stiffness, neck pain, others Integumetry: denies: bruises, change in color, change in hair/nails, dryness, laceration, lesions, lumps, rash, wounds, others Allergic/Immunocompromised: denies: Difficulty Healing, Frequent Infections, Hives, Itching, others Hematologic/Lymphatic: denies: anemia, blood clots, easy bleeding, easy bruising, swollen glands, others Endocrine: denies: excessive hunger, excessive sweating, excessive thirst, excessive urination, flushing, intolerance to cold, intolerance to heat, unexplained weight gain, unexplained weight loss, others Psychiatric: denies: anxiety, bipolar disorder, depression, hopeless, panic disorder, schizophrenia, sleepless, suicidal, others Vital Signs Vital Signs Date Time Temp Pulse Resp B/P (MAP) Pulse Ox O2 Delivery O2 Flow Rate FiO2 02/20/25 17:17 99 16 97 Room Air* 0 21 02/20/25 17:16 97.5 155/99 (117) 97.5 Physical Exam General Appearance: No Apparent Distress, Normal HEENT: Normal ENT Inspection Neck: Non-Tender, Normal Respiratory: Chest Non-Tender, Lungs Clear, No Accessory Muscle Use, No Respiratory Distress Cardiovascular: No Murmur, No Gallop, Tachycardia Breast Exam: None, Deferred Gastrointestinal: Non Tender, No Pulsatile Mass, Normal Bowel Sounds Genitalia: Deferred Pelvic: Deferred Rectal: Rectal Exam not done Extremities: No calf tenderness, Non-tender, No pedal edema Neurologic: Alert, None, Normal Affect, Normal Mood, No Sensory Deficits Cerebellar Function: NOT DONE Reflexes: NOT DONE Skin: Dry, Normal Color, Warm Lymphatic: NOT DONE Labs/Diagnostic Data Labs Test 02/20/25 14:25 Range/Units White Blood Count 8.4 # 4.4-10.8 10^3/uL Red Blood Count 5.48 4.5-5.90 10^6/uL Hemoglobin 17.4 13.5-17.5 g/dL Hematocrit 51.6 41.0-53.0 % Mean Corpuscular Volume 94.2 80.0-100.0 fL Mean Corpuscular Hemoglobin 31.8 28.0-32.0 pg Mean Corpuscular Hemoglobin Concent 33.8 32.0-36.0 g/dL Red Cell Distribution Width 14.3 11.8-14.3 % Platelet Count 191 140-450 10^3/uL Mean Platelet Volume 7.9 6.9-10.8 fL Neutrophils (%) (Auto) 71.0 37.0-80.0 % Lymphocytes (%) (Auto) 19.4 10.0-50.0 % Monocytes (%) (Auto) 5.9 0.0-12.0 % Eosinophils (%) (Auto) 3.1 0.0-7.0 % Basophils (%) (Auto) 0.6 0.0-2.0 % Neutrophils # (Auto) 6.0 1.6-8.6 10 ^3/uL Lymphocytes # (Auto) 1.6 0.4-5.4 10 ^3/uL Monocytes # (Auto) 0.5 0-1.3 10 ^3/uL Eosinophils # (Auto) 0.3 0-0.8 10 ^3/uL Basophils # (Auto) 0.1 0-0.2 10 ^3/uL Nucleated Red Blood Cells 0.1 % Prothrombin Time 10.2 9.3-11.8 sec Prothrombin Time INR 0.96 0.9-1.15 Activated Partial Thromboplast Time 29.2 24.5-34.5 SEC Sodium Level 144 136-145 mmol/L Potassium Level 4.7 3.5-5.1 mmol/L Chloride Level 112 H 98-107 mmol/L Carbon Dioxide Level 22 20-31 mmol/L Anion Gap 10 5-15 Blood Urea Nitrogen 21 9-23 mg/dL Creatinine 1.38 H 0.700-1.30 mg/dL Glomerular Filtration Rate Calc 59 >90 mL/min BUN/Creatinine Ratio 15.2 10.0-20.0 Serum Glucose 97 74-106 mg/dL Lactic Acid Level 1.4 0.4-2.0 mmol/L Calcium Level 10.4 8.7-10.4 mg/dL Assessment Right flank pain right UPJ stone, 7 mm Right renal stone Azotemia Plan/Recommendation NPO after midnight Cystoscopy with right ureteral stent placement and right ESWL tomorrow Plan discussed with: Patient, Other MUMTAZ BASURTO MD Feb 20, 2025 20:21
[2025-02-20 22:00] VITALS: BP 126/75; PULSE 86; RESP 18; TEMP 97.7; O2SAT 96
[2025-02-20 22:06] VITALS: PULSE 86; RESP 18; O2SAT 96
[2025-02-20] MEDS ORDERED: SERT-206 PO (22:19)
[2025-02-20] MEDS: LACTATED RINGER'S 1,000 ML IV ONE (23:05)
[2025-02-20] MEDS: TAMSULOSIN HYDROCHLORIDE 0.4 MG CAP PO SCH (23:11)
[2025-02-21] MEDS: NICOTINE 14 MG/24HR TOPICAL PATCH TD ONE (00:54)
[2025-02-21 00:58] VITALS: BP 121/83; PULSE 91; RESP 18; TEMP 97.7; O2SAT 96
[2025-02-21 04:36] VITALS: BP 90/59; PULSE 75; RESP 18; TEMP 97.9; O2SAT 99
[2025-02-21] MEDS: PANTOPRAZOLE 40 MG TAB PO SCH (06:26)
[2025-02-21 07:27] LABS: Hematocrit 47.2 % (41.0-53.0); Hemoglobin 16.0 g/dL (13.5-17.5); Mean Corpuscular Hemoglobin 31.8 pg (28.0-32.0); Mean Corpuscular Volume 93.8 fL (80.0-100.0); Nucleated Red Blood Cells % 0.1 %
[2025-02-21 07:44] LABS: Anion Gap 7 (5-15); Carbon Dioxide 25 mmol/L (20-31); Potassium 4.4 mmol/L (3.5-5.1); Sodium 143 mmol/L (136-145)
[2025-02-21 07:45] LABS: Calcium 10.1 mg/dL (8.7-10.4); Chloride 111 mmol/L (98-107)
[2025-02-21 07:50] LABS: BUN/Creatinine Ratio 17.8 (10.0-20.0); Blood Urea Nitrogen 23 mg/dL (9-23); Glucose 76 mg/dL (74-106)
[2025-02-21 08:52] VITALS: BP 111/74; PULSE 75; RESP 18; TEMP 97.5; O2SAT 97
[2025-02-21 09:06] LABS: Urine Amorphous Crystal FEW /hpf (None Seen); Urine Protein, UAD Negative (Negative)
[2025-02-21] MEDS: SERTRALINE HCL 50 MG TAB PO SCH (09:32)
--- NOTE | 2025-02-21 10:39 | DVH ---
CHEST RADIOGRAPH Indication: preop/pain Technique: Single frontal view of the chest was obtained Comparison: None FINDINGS: Lines and Tubes: None Lungs: No focal consolidation. Pleura: No effusion. No pneumothorax. Cardiomediastinal contours: Unremarkable Bones: No acute osseous abnormality. IMPRESSION: No acute cardiopulmonary disease.
[2025-02-21] MEDS: CIPROFLOXACIN 400MG/200ML 200 ML IV ONE (12:40)
[2025-02-21] MEDS ORDERED: fentaNYL CITRATE 100 MCG/2 ML VL ONE (12:59)
[2025-02-21] MEDS ORDERED: MIDAZOLAM HCL 2MG/2ML 2ml VIAL (1mg/ml) ONE (12:59)
[2025-02-21] MEDS ORDERED: MEPERIDINE HCL (25 MG/ML) 1ML VIAL ONE (12:59)
[2025-02-21] MEDS ORDERED: ONDANSETRON HCL 4 MG/2 ML VIAL ONE (12:59)
[2025-02-21] MEDS ORDERED: KETAMINE 50mg/ML 1ml syringe ONE (12:59)
[2025-02-21] MEDS ORDERED: PROPOFOL 10 MG/ML 20 ML IV ONE (12:59)
[2025-02-21] MEDS ORDERED: LIDOCAINE 2% (LOCAL ANESTH.) PF 5ml SDV ONE (12:59)
[2025-02-21] MEDS ORDERED: GLYCOPYRROLATE 0.2 MG/ML 1ML VIAL ONE (12:59)
[2025-02-21 13:00] VITALS: BP 126/85; PULSE 74; RESP 18; TEMP 97.5; O2SAT 97
--- NOTE | 2025-02-21 13:18 | DVHNC2 ---
Procedure - OPERATIVE REPORT Pre-op. Diagnosis: Renal Stone Post-op. Diagnosis: Same as pre-op diagnosis Operation: Extracorporeal Shockwave Lithotripsy Anesthesia: General Indications: Patient was found to have symptomatic Urolithiasis. Patient is here to undergo ESWL therapy. Informed Consent: The procedure was explained to the patient. It's risks include but not limited to infection, bleeding, and damage to the kidney. Patient fully understood and signed the consent. Other options such as watchful waiting, Ureteroscopy, Percutaneous surgery and open surgery were also discussed. Details of Procedure: Under satisfactory anesthesia, the patient was positioned on the lithotripsy table. Using fluoroscopy the stone was localized. Starting at low energy levels, shockwave treatment was commenced. The energy level was gradually increased and stone was fragmented. Once the treatment was completed, patient was then taken off the lithotripsy table and sent to recovery room in stable condition. Specimens: None Complications: None Findings: Stone Laterality: right Stone Location: lower pole 10 mm stone Shocks Delivered: 2400 Max Power settin Fragmentation Quality: Well MUMTAZ BASURTO MD Feb 21, 2025 13:18
--- NOTE | 2025-02-21 13:19 | DVHDS2 ---
New Physician D'charge PN Admitting Diagnosis Admitting Diagnosis Right flank pain Right renal stones Discharge Diagnosis same Operations or Procedures Right ESWL Reason(s) For Hospitalization Surgery Treatment Plan Discharge Condition of Discharge Fair Disposition Home Discharge Instructions Diet: Regular Activity: Light activity Activity comment: as tolerated Medications: given Follow Up Care Follow Up/Referral: 2 weeks with [facility] Discharge Statement: "Patient was advised to return to the ER or call 911 if any headaches, dizziness, shortness of breath, chest pain, abdominal pain, bleeding, fevers, or worsening of medical condition. Patient was counseled about treatment plan, medications, possible side effects, patientverbalized understanding. All questions were answered to the best of my ability. This discharge took greater then 30 minutes in planning, reviewing documentation, counseling the patient, and discussing with other team members." MUMTAZ BASURTO MD Feb 21, 2025 13:19
[2025-02-21] MEDS: ACETAMINOPHEN IV 1000 MG/100ML (10MG/ML) IV ONE (14:00)
[2025-02-21] MEDS ORDERED: HYDROmorphone HCL 2 MG/ML VL/or syr IV PRN (14:00)
[2025-02-21] MEDS ORDERED: ONDANSETRON HCL 4 MG/2 ML VIAL IV PRN (14:00)
--- NOTE | 2025-02-21 16:38 | DVHPNRES ---
Progress Note Date Seen: Feb 21, 2025 Resident Creating Document: MODE TINSLEY RESIDENT Medical Necessity Reason Pt with a Central, PICC or Fol: No Subjective Review of Systems Dusty Figueroa is a 59-year old male with past medical history of dyslipidemia, nephrolithiasis who came to the ED with a chief complaint of right flank pain. Patient mentioned he had been having right flank pain since last 2 weeks which he described as constant with intermittent episodes of intense pain, radiating to the back and right groin, rated 7/10 in intensity without any relieving factors. Patient came to the ER on 02/08/[address] abdomen pelvis which showed mild right hydronephrosis with 7 mm stone in the right puj, 5 mm stone in the left puj and additional nonobstructing bilateral renal stones. He was evaluated by Dr. Don, but was not cleared by Anesthesiology to undergo procedure as he was taking Ozempic. Per patient, she was asked by Dr. Gil to come to the ED for possible ESWL today. Patient underwent right ESWL on 02/21/2025 with an uncomplicated perioperative course. He will possibly be discharged tomorrow. Past medical history: Dyslipidemia, nephrolithiasis, MDD, morbid obesity Past surgical history: Right ESWL in 2019 Social & Personal history: Lives with family Smoking: More than 1 pack per day Alcohol: Occasional use Drugs: Denies Allergies: No known allergies Patient seen and examined at bedside. Patient is alert and oriented to time, place person and responding to all questions. Eyes: No Pain, No Vision change, No Conjunctivae inflammation, No Eyelid inflammation, No Redness ENT: No Ear pain, No Ear discharge, No Nose pain, No Nose discharge, No Nose congestion, No Mouth pain, No Mouth swelling, No Throat pain, No Throat swelling Cardiovascular: No Chest Pain, No Palpitations, No Orthopnea, No Paroxysmal No Dyspnea, No Edema, No Lt Headedness Respiratory: No Cough, No Dry, No Shortness of breath, No SOB with exertion, No Wheezing, No Hemoptysis, No Pleuritic Pain, No Sputum Gastrointestinal: No Nausea, No Vomiting, No Abdominal Pain, No Diarrhea, No Constipation, No Melena, No Hematochezia, right flank pain Genitourinary: No Dysuria, No Frequency, No Incontinence, No Hematuria, No Retention Objective vital signs Vital Sign Date Time Temp Pulse Resp B/P (MAP) Pulse Ox O2 Delivery O2 Flow Rate FiO2 02/21/25 14:20 70 14 113/70 (84) 95 02/21/25 13:55 Room Air 02/21/25 13:49 7.0 02/21/25 13:49 97.5 97.5 02/20/25 22:06 21 Total Intake and Output 02/20/25 02/20/25 02/21/25 15:00 23:00 07:00 Intake Total 0 ml Balance 0 ml medications Current Medications Medications Dose Ordered Sig/Veronica Route Start Time Stop Time Status Last Admin Dose Admin Ondansetron HCl 4 mg Q6HPRN PRN IV 02/20/25 15:00 Acetaminophen/ Hydrocodone Bitart 1 tab Q6HP PRN PO 02/20/25 15:00 02/21/25 16:06 1 TAB Acetaminophen 650 mg Q6HP PRN PO 02/20/25 15:00 Tamsulosin HCl 0.4 mg QPM PO 02/20/25 18:00 02/20/25 23:11 0.4 MG Pantoprazole Sodium 40 mg DAILY@0600 PO 02/21/25 06:00 02/21/25 06:26 40 MG Sertraline HCl 150 mg DAILY PO 02/21/25 10:00 02/21/25 09:32 150 MG Nicotine 1 patch DAILY TD 02/22/25 10:00 Examination General Appearance: Cooperative. Well developed. Well nourished. NAD Head Exam: Normal inspection Neck Exam: Normal inspection. Non-tender. Normal alignment Pulmonary/Respiratory: Chest non-tender. Clear bilateral breath sounds, no crackles, no wheezing. Cardiovascular/Chest: Regular rate and rhythm. No murmurs. No JVD. Peripheral Pulses: 2+ Radial (R). 2+ Radial (L). 2+ Pedal (R). 2+ Pedal (L) Abdominal Exam: Normal bowel sounds. Soft. normal abdomen, no visible veins, mild tenderness on deep palpation of right flank. No hepatospenomegaly. No masses Ankle Exam: Negative ankle edema Lower extremities: Negative lower extremity edema Neuro/Mental Status: A&O x4. Coherent. Thoughts/Psych: Normal thought pattern. Appropriate mood and affect. Good judgement and insight Skin Exam: Normal inspection. Normal color. Warm. Dry laboratory and microbiology Laboratory Tests 02/21/25 05:58 Test 02/21/25 05:58 Range/Units Serum Glucose 76 74-106 mg/dL Labs and/or images reviewed: Labs reviewed by me, Image(s) reviewed by me Problem List/Assessment/Plan Problem List/Assessment/Plan # Bilateral Nephroureterolithiasis # Right hydronephrosis s/p right ESWL on 02/21/25 - CT abdomen pelvis done on 02/08 showed mild right hydronephrosis with 7 mm stone in the right PUJ, 5 mm stone in the left PUJ and additional nonobstructing bilateral renal stones - urology consulted, patient underwent ESWL today - tamsulosin 0.4mg po hs - pain management # ANTONIA on CKD likely due to VMN/obstruction - encourage oral intake -avoid nephrotoxic agents -monitor BMP # History of MDD - continue on sertraline 150 mg daily # nicotine abuse -nicotine patch 14 mg/24 hour PUD prophylaxis : Protonix 40 mg p.o. daily DVT prophylaxis: Ambulating Goals of care discussed with the patient for over 17 minutes,Full code Plan discussed with Dr. Casarez Plan discussed with: Patient My Orders My Orders Orders - MODE TINSLEY RESIDENT Procedure Category Date Status Time Chest Xray 1 View XY 02/21/25 Resulted 09:44 Date of Service: Feb 21, 2025 Billing Provider: STEPHEN CASAREZ MD Common Visit Codes: [id number] INP/OBS CARE(HIGH) MODE TINSLEY RESIDENT Feb 21, 2025 16:38 STEPHEN CASAREZ MD Feb 21, 2025 18:56
[2025-02-21 16:47] VITALS: BP 127/83; PULSE 67; RESP 18; TEMP 97.8; O2SAT 97
[2025-02-21] MEDS: SODIUM CHLORIDE 0.9% 1,000 ML IV SCH (18:30)
[2025-02-21] MEDS: ONDANSETRON HCL 4 MG/2 ML VIAL IV PRN (20:14)
[2025-02-21] MEDS: MORPHINE SULFATE 4 MG/ML SYR/VIAL IV PRN (20:15)
[2025-02-21 21:00] VITALS: BP 141/85; PULSE 91; RESP 18; TEMP 98.3; O2SAT 93
--- NOTE | 2025-02-21 21:23 | DVH ---
Exam: XY [facility] ABDOMEN SINGLE VIEW Indication: stones Comparison: CT abdomen/pelvis 02/08/2025 Technique: 1 view Findings/IMPRESSION: 1. Limited single oblique view with significant beam underpenetration. No obvious urinary stone, although this exam should not be considered diagnostic for assessment. 2. Lumbar spondylosis. Nonobstructive bowel-gas pattern.
[2025-02-22 01:00] VITALS: BP 124/84; PULSE 114; RESP 18; TEMP 98.3; O2SAT 91
[2025-02-22 05:00] VITALS: BP 91/56; PULSE 112; RESP 18; TEMP 98.2; O2SAT 90
[2025-02-22] MEDS: PHENAZOPYRIDINE HCL 100 MG TAB PO ONE (05:39)
[2025-02-22] MEDS: KETOROLAC TROMETH 30 MG/ML 1ML VIAL IV ONE (05:39)
[2025-02-22 07:04] LABS: Hematocrit 36.1 % (41.0-53.0); Hemoglobin 12.5 g/dL (13.5-17.5); Mean Corpuscular Hemoglobin 32.2 pg (28.0-32.0); Mean Corpuscular Volume 92.9 fL (80.0-100.0); Nucleated Red Blood Cells % 0.0 %
[2025-02-22 07:14] LABS: Anion Gap 8 (5-15); Carbon Dioxide 21 mmol/L (20-31); Potassium 5.1 mmol/L (3.5-5.1); Sodium 136 mmol/L (136-145)
[2025-02-22 07:15] LABS: Calcium 9.7 mg/dL (8.7-10.4)
[2025-02-22 07:20] LABS: BUN/Creatinine Ratio 14.1 (10.0-20.0)
[2025-02-22 07:24] LABS: Blood Urea Nitrogen 26 mg/dL (9-23); Chloride 107 mmol/L (98-107); Glucose 144 mg/dL (74-106)
[2025-02-22] MEDS: NICOTINE 14 MG/24HR TOPICAL PATCH TD SCH (08:46)
[2025-02-22 08:50] VITALS: BP 103/90; PULSE 111; RESP 20; TEMP 97.6; O2SAT 94
[2025-02-22 13:00] VITALS: BP 95/60; PULSE 106; RESP 20; TEMP 98.3; O2SAT 94
--- NOTE | 2025-02-22 13:16 | DVH ---
INDICATION: Right hydronephrosis/ look for ureteral jetting TECHNIQUE: Multiple real-time sonographic images of the kidneys and bladder were obtained. COMPARISON: None FINDINGS: The right kidney measures 12 cm in length, which is normal in size. There is normal echogenicity of the right kidney. No hydronephrosis. 13 cm complex cystic mass seen in the right kidney. MRI renal mass protocol recommended. The left kidney measures 12 cm in length, which is normal in size. There is normal echogenicity of the left kidney. No hydronephrosis. IMPRESSION: 13 cm complex cystic mass seen in the right kidney. MRI renal mass protocol recommended. Bilateral ureteral jets not visualized
[2025-02-22 16:54] VITALS: BP 111/67; PULSE 111; RESP 18; TEMP 97.6; O2SAT 94
--- NOTE | 2025-02-22 17:01 | DVHPNRES ---
Progress Note Date Seen: Feb 22, 2025 Resident Creating Document: MODE TINSLEY RESIDENT Medical Necessity Reason Pt with a Central, PICC or Fol: No Subjective Review of Systems Dusty Figueroa is a 59-year old male with past medical history of dyslipidemia, nephrolithiasis who came to the ED with a chief complaint of right flank pain. Patient mentioned he had been having right flank pain since last 2 weeks which he described as constant with intermittent episodes of intense pain, radiating to the back and right groin, rated 7/10 in intensity without any relieving factors. Patient came to the ER on 02/08/[address] abdomen pelvis which showed mild right hydronephrosis with 7 mm stone in the right puj, 5 mm stone in the left puj and additional nonobstructing bilateral renal stones. He was evaluated by Dr. Huff, but was not cleared by Anesthesiology to undergo procedure as he was taking Ozempic. Per patient, he was asked by Dr. Huff to come to the ED for possible ESWL today. Patient underwent right ESWL on 02/21/2025 with an uncomplicated perioperative course. Past medical history: Dyslipidemia, nephrolithiasis, MDD, morbid obesity Past surgical history: Right ESWL in 2019 Social & Personal history: Lives with family Smoking: More than 1 pack per day Alcohol: Occasional use Drugs: Denies Allergies: No known allergies Patient seen and examined at bedside. Patient is alert and oriented to time, place person and responding to all questions. Eyes: No Pain, No Vision change, No Conjunctivae inflammation, No Eyelid inflammation, No Redness ENT: No Ear pain, No Ear discharge, No Nose pain, No Nose discharge, No Nose congestion, No Mouth pain, No Mouth swelling, No Throat pain, No Throat swelling Cardiovascular: No Chest Pain, No Palpitations, No Orthopnea, No Paroxysmal No Dyspnea, No Edema, No Lt Headedness Respiratory: No Cough, No Dry, No Shortness of breath, No SOB with exertion, No Wheezing, No Hemoptysis, No Pleuritic Pain, No Sputum Gastrointestinal: No Nausea, No Vomiting, No Abdominal Pain, No Diarrhea, No Constipation, No Melena, No Hematochezia, right flank pain Genitourinary: No Dysuria, No Frequency, No Incontinence, No Hematuria, No Retention 02/22/25- The patient was seen at bedside today. The patient had complained of intense right-sided flank pain in the later part of the evening yesterday post the procedure, which has resolved today. He has been given morphine 3 mg q.4 PRN. White count today was 14.9, for which we started ceftriaxone 1 g daily IV. Creatinine today had increased to 1.85, IV fluids were given at 75ml/hr. We will monitor BMP tomorrow morning and possibly discharge tomorrow. Dr Huff recommended to do a renal ultrasound and monitor BP. Renal ultrasound 13 cm complex cystic mass seen in the right kidney and Bilateral ureteral jets not visualized. Objective vital signs Vital Sign Date Time Temp Pulse Resp B/P (MAP) Pulse Ox O2 Delivery O2 Flow Rate FiO2 02/22/25 13:00 98.3 106 20 95/60 (72) 94 98.3 02/21/25 13:55 Room Air 02/21/25 13:49 7.0 02/20/25 22:06 21 Total Intake and Output 02/21/25 02/21/25 02/22/25 15:00 23:00 07:00 Intake Total 100 ml 545 ml 425 ml Balance 100 ml 545 ml 425 ml medications Current Medications Medications Dose Ordered Sig/Veronica Route Start Time Stop Time Status Last Admin Dose Admin Ondansetron HCl 4 mg Q6HPRN PRN IV 02/20/25 15:00 02/21/25 20:14 4 MG Acetaminophen/ Hydrocodone Bitart 1 tab Q6HP PRN PO 02/20/25 15:00 02/22/25 16:08 1 TAB Acetaminophen 650 mg Q6HP PRN PO 02/20/25 15:00 Tamsulosin HCl 0.4 mg QPM PO 02/20/25 18:00 02/21/25 19:11 0.4 MG Pantoprazole Sodium 40 mg DAILY@0600 PO 02/21/25 06:00 02/22/25 05:40 40 MG Sertraline HCl 150 mg DAILY PO 02/21/25 10:00 02/22/25 08:45 150 MG Nicotine 1 patch DAILY TD 02/22/25 10:00 02/22/25 08:46 1 PATCH Morphine Sulfate 3 mg Q4HPRN PRN IV 02/21/25 18:30 02/22/25 01:07 3 MG Ceftriaxone Sodium 50 ml @ 100 mls/hr DAILY@09 IV 02/23/25 09:00 Sodium Chloride 1,000 ml @ 75 mls/hr [id number] IV 02/22/25 16:30 UNV Examination General Appearance: Cooperative. Well developed. Well nourished. NAD Head Exam: Normal inspection Neck Exam: Normal inspection. Non-tender. Normal alignment Pulmonary/Respiratory: Chest non-tender. Clear bilateral breath sounds, no crackles, no wheezing. Cardiovascular/Chest: Regular rate and rhythm. No murmurs. No JVD. Peripheral Pulses: 2+ Radial (R). 2+ Radial (L). 2+ Pedal (R). 2+ Pedal (L) Abdominal Exam: Normal bowel sounds. Soft. normal abdomen, no visible veins, mild tenderness on deep palpation of right flank. No hepatospenomegaly. No masses Ankle Exam: Negative ankle edema Lower extremities: Negative lower extremity edema Neuro/Mental Status: A&O x4. Coherent. Thoughts/Psych: Normal thought pattern. Appropriate mood and affect. Good judgement and insight Skin Exam: Normal inspection. Normal color. Warm. Dry laboratory and microbiology Laboratory Tests 02/22/25 06:11 Test 02/22/25 06:11 Range/Units Serum Glucose 144 H 74-106 mg/dL Labs and/or images reviewed: Labs reviewed by me, Image(s) reviewed by me Problem List/Assessment/Plan Problem List/Assessment/Plan # Bilateral Nephroureterolithiasis # Right hydronephrosis s/p right ESWL on 02/21/25 - CT abdomen pelvis done on 02/08 showed mild right hydronephrosis with 7 mm stone in the right PUJ, 5 mm stone in the left PUJ and additional nonobstructing bilateral renal stones - urology consulted, patient underwent ESWL today - tamsulosin 0.4mg po hs - pain management with morphine 3 mg q.4 hour p.r.n. 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 daily DVT prophylaxis: Ambulating Goals of care discussed with the patient for>17 minutes,Full code Plan discussed with Dr. Casarez Plan discussed with: Patient My Orders My Orders Orders - MODE TINSLEY Procedure Category Date Status Time Ceftriaxone 1gm/50ml PHA 02/23/25 In Process (Rocephin) 09:00 Basic Metabolic Panel LAB 02/22/25 Logged 16:00 Sodium Chloride 0.9% PHA 02/22/25 Logged 16:30 Date of Service: Feb 22, 2025 Billing Provider: STEPHEN CASAREZ MD Common Visit Codes: [id number] INP/OBS CARE(HIGH) MODE TINSLEY Feb 22, 2025 17:01 STEPHEN CASAREZ MD Feb 22, 2025 22:38
[2025-02-22 17:32] LABS: Potassium 4.4 mmol/L (3.5-5.1); Sodium 140 mmol/L (136-145)
[2025-02-22 17:33] LABS: Chloride 110 mmol/L (98-107)
[2025-02-22 17:34] LABS: Anion Gap 7 (5-15); Calcium 9.7 mg/dL (8.7-10.4); Carbon Dioxide 23 mmol/L (20-31)
[2025-02-22 17:39] LABS: BUN/Creatinine Ratio 18.6 (10.0-20.0); Blood Urea Nitrogen 37 mg/dL (9-23); Glucose 106 mg/dL (74-106)
[2025-02-22] MEDS: SODIUM CHLORIDE 0.9% 1,000 ML IV SCH (18:04)
[2025-02-22 21:00] VITALS: BP 126/76; PULSE 101; RESP 17; TEMP 98.3; O2SAT 97
[2025-02-23 01:00] VITALS: BP 119/74; PULSE 97; RESP 17; TEMP 98.1; O2SAT 92
[2025-02-23 05:00] VITALS: BP 122/76; PULSE 89; RESP 17; TEMP 98.2; O2SAT 95
[2025-02-23 06:56] LABS: Hematocrit 28.9 % (41.0-53.0); Hemoglobin 9.8 g/dL (13.5-17.5); Mean Corpuscular Hemoglobin 32.2 pg (28.0-32.0); Mean Corpuscular Volume 94.6 fL (80.0-100.0); Nucleated Red Blood Cells % 0.0 %
[2025-02-23 06:57] LABS: Anion Gap 6 (5-15); Calcium 9.5 mg/dL (8.7-10.4); Carbon Dioxide 24 mmol/L (20-31); Potassium 4.8 mmol/L (3.5-5.1); Sodium 141 mmol/L (136-145)
[2025-02-23 07:03] LABS: BUN/Creatinine Ratio 19.2 (10.0-20.0); Glucose 93 mg/dL (74-106)
[2025-02-23 07:10] LABS: Blood Urea Nitrogen 30 mg/dL (9-23); Chloride 111 mmol/L (98-107)
[2025-02-23 08:53] VITALS: BP 133/88; PULSE 90; RESP 17; TEMP 97.3; O2SAT 99
--- NOTE | 2025-02-23 11:36 | DVHPN2 ---
Progress Note - Dictate Date Seen: Feb 23, 2025 Medical Necessity Reason Pt with a Central, PICC or Fol: No vital signs Vital Sign Date Time Temp Pulse Resp B/P (MAP) Pulse Ox O2 Delivery O2 Flow Rate FiO2 02/23/25 08:53 97.3 90 17 133/88 (103) 99 97.3 02/23/25 08:00 Room Air* 0 21 Total Intake and Output 02/22/25 02/22/25 02/23/25 15:00 23:00 07:00 Intake Total 1025 ml 2110 ml 1450 ml Output Total 800 ml Balance 1025 ml 1310 ml 1450 ml medications Current Medications Medications Dose Ordered Sig/Veronica Route Start Time Stop Time Status Last Admin Dose Admin Ondansetron HCl 4 mg Q6HPRN PRN IV 02/20/25 15:00 02/21/25 20:14 4 MG Acetaminophen/ Hydrocodone Bitart 1 tab Q6HP PRN PO 02/20/25 15:00 02/22/25 16:08 1 TAB Acetaminophen 650 mg Q6HP PRN PO 02/20/25 15:00 Tamsulosin HCl 0.4 mg QPM PO 02/20/25 18:00 02/22/25 18:04 0.4 MG Pantoprazole Sodium 40 mg DAILY@0600 PO 02/21/25 06:00 02/23/25 05:29 40 MG Sertraline HCl 150 mg DAILY PO 02/21/25 10:00 02/23/25 08:48 150 MG Nicotine 1 patch DAILY TD 02/22/25 10:00 02/23/25 08:51 1 PATCH Morphine Sulfate 3 mg Q4HPRN PRN IV 02/21/25 18:30 02/22/25 01:07 3 MG Ceftriaxone Sodium 50 ml @ 100 mls/hr DAILY@09 IV 02/23/25 09:00 02/23/25 08:51 100 MLS/HR Sodium Chloride 1,000 ml @ 75 mls/hr [id number] IV 02/22/25 16:30 02/23/25 05:29 75 MLS/HR laboratory and microbiology Laboratory Tests 02/23/25 06:17 Test 02/23/25 06:17 Range/Units Serum Glucose 93 74-106 mg/dL Assessment/Plan s/p right ESWL creatinine improving. pain free encourage hydration f/u urology 2 weeks Problems(with codes): (1) Ureterolithiasis (2) Hydronephrosis (3) Ureteral colic (4) Right flank pain Plan discussed with: KIMBERLEY Fonseca NP Feb 23, 2025 11:36
[2025-02-23 12:39] VITALS: BP 127/84; PULSE 94; RESP 17; TEMP 97.9; O2SAT 95
[2025-02-23 16:53] VITALS: BP 178/110; PULSE 56; RESP 17; TEMP 97.9; O2SAT 98
--- NOTE | 2025-02-23 20:27 | DVHDSRES ---
Discharge Summary Date of Admission Resident Creating Document: MODE TINSLEY RESIDENT Feb 20, 2025 at 15:00 Date of Discharge: Feb 23, 2025 Labs/Diagnostic Data: Laboratory Results Test 02/23/25 06:17 02/20/25 14:25 02/20/25 14:06 White Blood Count 7.5 10^3/uL (4.4-10.8) Red Blood Count 3.06 10^6/uL (4.5-5.90) Hemoglobin 9.8 g/dL (13.5-17.5) Hematocrit 28.9 % (41.0-53.0) Mean Corpuscular Volume 94.6 fL (80.0-100.0) Mean Corpuscular Hemoglobin 32.2 pg (28.0-32.0) Mean Corpuscular Hemoglobin Concent 34.0 g/dL (32.0-36.0) Red Cell Distribution Width 13.7 % (11.8-14.3) Platelet Count 134 10^3/uL (140-450) Mean Platelet Volume 8.2 fL (6.9-10.8) Neutrophils (%) (Auto) 72.3 % (37.0-80.0) Lymphocytes (%) (Auto) 17.9 % (10.0-50.0) Monocytes (%) (Auto) 8.2 % (0.0-12.0) Eosinophils (%) (Auto) 1.2 % (0.0-7.0) Basophils (%) (Auto) 0.4 % (0.0-2.0) Neutrophils # (Auto) 5.4 10 ^3/uL (1.6-8.6) Lymphocytes # (Auto) 1.3 10 ^3/uL (0.4-5.4) Monocytes # (Auto) 0.6 10 ^3/uL (0-1.3) Eosinophils # (Auto) 0.1 10 ^3/uL (0-0.8) Basophils # (Auto) 0 10 ^3/uL (0-0.2) Nucleated Red Blood Cells 0.0 % Sodium Level 141 mmol/L (136-145) Potassium Level 4.8 mmol/L (3.5-5.1) Chloride Level 111 mmol/L (98-107) Carbon Dioxide Level 24 mmol/L (20-31) Anion Gap 6 (5-15) Blood Urea Nitrogen 30 mg/dL (9-23) Creatinine 1.56 mg/dL (0.700-1.30) Glomerular Filtration Rate Calc 51 mL/min (>90) BUN/Creatinine Ratio 19.2 (10.0-20.0) Serum Glucose 93 mg/dL (74-106) Calcium Level 9.5 mg/dL (8.7-10.4) Prothrombin Time 10.2 sec (9.3-11.8) Prothrombin Time INR 0.96 (0.9-1.15) Activated Partial Thromboplast Time 29.2 SEC (24.5-34.5) Lactic Acid Level 1.4 mmol/L (0.4-2.0) Urine Color Light-yellow (Yellow) Urine Clarity Clear (Clear) Urine pH 6.5 (5.0-9.0) Urine Specific [place] 1.021 (1.001-1.035) Urine Protein Negative (Negative) Urine Ketones Negative (Negative) Urine Blood 2+ /uL (Negative) Urine Nitrite Negative (Negative) Urine Bilirubin Negative (Negative) Urine Urobilinogen Normal mg/dL (Negative) Urine Leukocyte Esterase Negative /uL (Negative) Urine RBC 68 /hpf (0 - 3) Urine Microscopic WBC 3 /HPF (0-3) Urine Squamous Epithelial Cells None seen /hpf (<5) Urine Calcium Oxalate Crystals Few (None Seen) Urine Amorphous Crystals Few /hpf (None Seen) Urine Bacteria None seen /hpf (None Seen) Urine Mucus Few (None Seen) Urine Glucose Normal mg/dL (Normal) Other Laboratory Tests 02/23/25 06:17 Brief Hx & Hospital Course: Dusty Figueroa is a 59-year old male with past medical history of dyslipidemia, nephrolithiasis who came to the ED with the chief complaint of right flank pain. Patient mentioned he had been having right flank pain since last 2 weeks which he described as constant with intermittent episodes of intense pain, radiating to the back and right groin, rated 7/10 in intensity without any relieving factors. Patient came to the ER on 02/08/[address] abdomen pelvis which showed mild right hydronephrosis with 7 mm stone in the right puj, 5 mm stone in the left puj and additional nonobstructing bilateral renal stones. He was evaluated by Dr. Huff, but was not cleared by Anesthesiology to undergo procedure as he was taking Ozempic. Per patient, he was asked by Dr. Huff to come to the ED for possible ESWL. Patient underwent ESWL on 02/21/2025, post which he developed intense right-sided flank pain, for which he was started on morphine 3 mg q.4 p.r.n.. He was given ceftriaxone 1 g daily IV with IV fluids at 75 mL/hour. His creatinine today was 1.56. His hemoglobin today was 9.8. Renal ultrasound showed 13 cm complex cystic mass in the right kidney and bilateral ureteral jets not visualized. Further workup was recommended for the renal mass with MRI. Further workup for the drop in hemoglobin was planned for today. Patient was explained about the importance of all of these investigations, but he decided to leave AMA. Past medical history: Dyslipidemia, nephrolithiasis, MDD, morbid obesity Past surgical history: Right ESWL in 2019 Social & Personal history: Lives with family Smoking: More than 1 pack per day Alcohol: Occasional use Drugs: Denies Allergies: No known allergies General Appearance: Cooperative. Well developed. Well nourished. NAD Head Exam: Normal inspection Neck Exam: Normal inspection. Non-tender. Normal alignment Pulmonary/Respiratory: Chest non-tender. Clear bilateral breath sounds, no crackles, no wheezing. Cardiovascular/Chest: Regular rate and rhythm. No murmurs. No JVD. Peripheral Pulses: 2+ Radial (R). 2+ Radial (L). 2+ Pedal (R). 2+ Pedal (L) Abdominal Exam: Normal bowel sounds. Soft. normal abdomen, no visible veins, no tenderness on deep palpation of right flank. No hepatospenomegaly. No masses Ankle Exam: Negative ankle edema Lower extremities: Negative lower extremity edema Neuro/Mental Status: A&O x4. Coherent. Thoughts/Psych: Normal thought pattern. Appropriate mood and affect. Good judgement and insight Skin Exam: Normal inspection. Normal color. Warm. Dry Operations or Procedures 1.PROCEDURE(s): CXR1 - CHEST XRAY 1 VIEW REASON: preop ORDER NUMBER(s): [id number], ACCESSION NUMBER(s): [id number] CHEST RADIOGRAPH Indication: preop/pain Technique: Single frontal view of the chest was obtained Comparison: None FINDINGS: Lines and Tubes: None Lungs: No focal consolidation. Pleura: No effusion. No pneumothorax. Cardiomediastinal contours: Unremarkable Bones: No acute osseous abnormality. IMPRESSION: No acute cardiopulmonary disease. 2.PROCEDURE(s): KUB - KUB ABDOMEN SINGLE VIEW REASON: stones ORDER NUMBER(s): [id number], ACCESSION NUMBER(s): [id number] Exam: XY KUB ABDOMEN SINGLE VIEW Indication: stones Comparison: CT abdomen/pelvis 02/08/2025 Technique: 1 view Findings/IMPRESSION: 1. Limited single oblique view with significant beam underpenetration. No obvious urinary stone, although this exam should not be considered diagnostic for assessment. 2. Lumbar spondylosis. Nonobstructive bowel-gas patte 3.PROCEDURE(s): KIDUS - KIDNEY REASON: Right hydronephrosis/ look for ureteral jetting ORDER NUMBER(s): [id number], ACCESSION NUMBER(s): [id number] INDICATION: Right hydronephrosis/ look for ureteral jetting TECHNIQUE: Multiple real-time sonographic images of the kidneys and bladder were obtained. COMPARISON: None FINDINGS: The right kidney measures 12 cm in length, which is normal in size. There is normal echogenicity of the right kidney. No hydronephrosis. 13 cm complex cystic mass seen in the right kidney. MRI renal mass protocol recommended. The left kidney measures 12 cm in length, which is normal in size. There is normal echogenicity of the left kidney. No hydronephrosis. IMPRESSION: 13 cm complex cystic mass seen in the right kidney. MRI renal mass protocol recommended. Bilateral ureteral jets not visualized 4.OPERATIVE REPORT Pre-op. Diagnosis: Renal Stone Post-op. Diagnosis: Same as pre-op diagnosis Operation: Extracorporeal Shockwave Lithotripsy Anesthesia: General Indications: Patient was found to have symptomatic Urolithiasis. Patient is here to undergo ESWL therapy. Informed Consent: The procedure was explained to the patient. It's risks include but not limited to infection, bleeding, and damage to the kidney. Patient fully understood and signed the consent. Other options such as watchful waiting, Ureteroscopy, Percutaneous surgery and open surgery were also discussed. Details of Procedure: Under satisfactory anesthesia, the patient was positioned on the lithotripsy table. Using fluoroscopy the stone was localized. Starting at low energy levels, shockwave treatment was commenced. The energy level was gradually increased and stone was fragmented. Once the treatment was completed, patient was then taken off the lithotripsy table and sent to recovery room in stable condition. 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 Complex cystic mass seen in the right kidney, possible malignancy History of MDD nicotine abuse Discharge Disposition: Home Discharge Instruct/Medications Diet: Regular Activity: Light activity Activity comment: as tolerated Follow Up/Referral: 2 weeks with KUB Scheduled Atorvastatin Calcium (Lipitor), 1 TAB PO DAILY, (Reported) Sertraline Hcl (Sertraline Hcl), 150 MG PO DAILY, (Reported) Miscellaneous Medications Semaglutide (Ozempic), 2 MG SC, (Reported) Sertraline Hcl (Zoloft), 50 MG PO, (Reported) Discharge Statement: "Patient was advised to return to the ER or call 911 if any headaches, dizziness, shortness of breath, chest pain, abdominal pain, bleeding, fevers, or worsening of medical condition. Patient was counseled about treatment plan, medications, possible side effects, patientverbalized understanding. All questions were answered to the best of my ability. This discharge took greater then 30 minutes in planning, reviewing documentation, counseling the patient, and discussing with other team members." ASSESSMENT ASSESSMENT Assessment same Date of Service: Feb 23, 2025 Billing Provider: STEPHEN CASAREZ MD Common Visit Codes: 29362-EXK/OBS DISCH DAY >30min MODE TINSLEY RESIDENT Feb 23, 2025 20:27 STEPHEN CASAREZ MD Feb 25, 2025 13:24
== END 2025-02-23 13:05 | disposition left against medical advice (07) | DRG 693 ==
LOC: ER 13:26 → OVERFLOW 15:00 → WEST WING 15:06
PROVIDERS: ADMIT Internal Medicine; ATTEND Internal Medicine
PROC: 0TF3XZZ Fragmentation in Right Kidney Pelvis, External Approach (ICD-10-PCS; principal; 2025-02-21 13:02)
DX: N13.2 Hydronephrosis with renal and ureteral calculous obstruction (principal); R65.11 Systemic inflammatory response syndrome (SIRS) of non-infectious origin with acute organ dysfunction; N17.0 Acute kidney failure with tubular necrosis; E11.22 Type 2 diabetes mellitus with diabetic chronic kidney disease; N18.9 Chronic kidney disease, unspecified; Z53.29 Procedure and treatment not carried out because of patient's decision for other reasons; N28.1 Cyst of kidney, acquired; E78.5 Hyperlipidemia, unspecified; F17.210 Nicotine dependence, cigarettes, uncomplicated; Z79.899 Other long term (current) drug therapy
CPT/HCPCS: 36415; 71045; 74018; 76775; 80048; 81001; 83605; 85025; 85610; 85730; A4344; G0378; J0131; J1100; J1885; J2003; J2250; J2405; J2704

== ENCOUNTER 2025-02-27 16:41 | Emergency (ER) | payer OTHER ==
[~2025-02-27] VITALS: Ht 190.5 cm; Wt 134.8 kg
[~2025-02-27 16:41] MED LIST changes: +SERT-206 PO
[2025-02-27 16:42] VITALS: BP 130/80; PULSE 112; RESP 17; TEMP 98.7; O2SAT 95
--- NOTE | 2025-02-27 17:13 | ED.PDOC ---
GI ASSESSMENT HPI Comments 59 year old male with PMHx kidney stones presents to the ED with a chief complaint of abdominal pain onset 4 days. Patient states he had a lithotripsy done 1 week ago, 4 days ago, began experiencing abdominal distension, abdominal discomfort, chest pain, shortness of breath, dizziness, difficulty urinating. Patient spoke with Urologist, Dr. Huff, recommended to come to ED, stated he will consult patient. Denies fever, chill, nausea, vomiting, diarrhea, hematemesis. No other symptoms or modifying factors present at this time. Chief Complaint: Abdominal Pain Time Seen by MD: 17:00 Primary Care Provider: CAYETANO Parry Notes: Medications, Allergies Allergies: Coded Allergies: NO KNOWN ALLERGIES (Unverified , 01/04/19) Home Meds Reported Medications Sertraline Hcl (Sertraline Hcl) 50 Mg Tab, 150 MG PO DAILY for 30 Days, MG 02/20/25 Atorvastatin Calcium (Lipitor) 20 Mg Tab, 1 TAB PO DAILY, #90 TAB 1 Refill 02/08/25 Semaglutide (Ozempic) 2 Mg/3 Ml Inj, 2 MG SC, INJ 02/08/25 Sertraline Hcl (Zoloft) 50 Mg Tab, 50 MG PO, TAB 02/08/25 Information Source: Patient Mode of Arrival: Ambulatory Timing: Days Duration: Since onset Prehospital treatment: None Quality: Sharp Vomitus: None Severity: Moderate Recent: None Recent Hx of: None Pain Location: Diffuse Modifying Factors: Nothing Associated sign and symptoms: Abdominal Pain Past Medical History PAST MEDICAL HISTORY: Kidney Stones Surgical History: Hernia Repair Family History Family History: Reviewed,noncontributory to illness, No family hx of Cancer, No family hx of DM Social History Smoker: Cigarettes, Greater Than 1 Pack/Day Alcohol: Occasionally Drugs: Denies Drug Use Lives In: Home Constitutional: denies: chills, diaphoresis, fatigue, fever, malaise, sweats, weakness, others EENTM: denies: blurred vision, double vision, ear bleeding, ear discharge, ear drainage, ear pain, ear ringing, eye pain, eye redness, hearing loss, mouth pain, mouth swelling, nasal discharge, nose bleeding, nose congestion, nose pain, photophobia, tearing, throat pain, throat swelling, voice changes, others Respiratory: reports: shortness of breath; denies: cough, hemoptysis, orthopn ea, SOB at rest, SOB with excertion, stridor, wheezing, others Cardiovascular: reports: chest pain; denies: dizzy spells, diaphoresis, Dyspnea on exertion, edema, irregular heart beat, left arm pain, lightheadedness, palpitations, PND, syncope, others Gastrointestinal: reports: abdomen distended, abdominal pain; denies: blood streaked bowels, constipated, diarrhea, dysphagia, difficulty swallowing, hem atemesis, melena, nausea, poor appetite, poor fluid intake, rectal bleeding, rectal pain, vomiting, others Genitourinary: reports: others; denies: burning, dysuria, flank pain, frequency, hematuria, incontinence, penile discharge, penile sore, pain, testicle pain, testicle swelling, urgency Neurological: reports: dizziness; denies: fainting, headache, left sided numbness, left sided weakness, numbness, paresthesia, pre-existing deficit, right sided numbness, right sided weakness, seizure, speech problems, tingling, tremors, weakness, others Musculoskeletal: denies: back pain, gout, joint pain, joint swelling, muscle pain, muscle stiffness, neck pain, others Integumetry: denies: bruises, change in color, change in hair/nails, dryness, laceration, lesions, lumps, rash, wounds, others Allergic/Immunocompromised: denies: Difficulty Healing, Frequent Infections, Hi ves, Itching, others Hematologic/Lymphatic: denies: anemia, blood clots, easy bleeding, easy bruising, swollen glands, others Endocrine: denies: excessive hunger, excessive sweating, excessive thirst, excessive urination, flushing, intolerance to cold, intolerance to heat, unexplained weight gain, unexplained weight loss, others Psychiatric: denies: anxiety, bipolar disorder, depression, hopeless, panic disorder, schizophrenia, sleepless, suicidal, others All Other Systems: Reviewed and Negative Physical Exam General Appearance: No Apparent Distress, Normal HEENT: Normal ENT Inspection, Pharynx Normal, TMs Normal Neck: Full Range of Motion, Non-Tender, Normal, Normal Inspection Respiratory: Chest Non-Tender, Lungs Clear, No Accessory Muscle Use, No Respiratory Distress, Normal Breath Sounds Cardiovascular: No Edema, No JVD, No Murmur, No Gallop, Normal Peripheral Pulses, Regular Rate/Rhythm Breast Exam: Deferred Gastrointestinal: No Organomegaly, Non Tender, No Pulsatile Mass, Normal Bowel Sounds, Soft Genitalia: Deferred Pelvic: Deferred Rectal: Deferred Extremities: No calf tenderness, Normal capillary refill, Normal inspection, Normal range of motion, Non-tender, No pedal edema Musculoskeletal : Apperance: Normal Neurologic: Alert, ux visual designer II-XII nml as Tested, No Motor Deficits, Normal Affect, Normal Mood, No Sensory Deficits Cerebellar Function: Normal Reflexes: Normal Skin: Dry, Normal Color, Warm Lymphatic: No Adenopathy Was a procedure done? Was a procedure done?: No X-Ray, Labs, Meds, VS Vital Signs Date Time Temp Pulse Resp B/P (MAP) Pulse Ox O2 Delivery O2 Flow Rate FiO2 02/27/25 16:42 98.7 112 17 130/80 95 98.7 Time of 1ST Reevaluation: 17:30 Reevaluation 1ST: Unchanged Patient Education/Counseling: Diagnosis, Treatment, Prognosis Family Education/Counseling: No Family Present SEPSIS Sepsis Screen Date sepsis recognized/suspect: Feb 27, 2025 Time Sepsis recognized/suspect: 1644 Recent Procedure: No On Antibiotic Therapy: No Respiratory Rate >20: No Heart Rate >90: No Temp<36 C (96.8 F) or >38.3 C: No SBP <90 or MAP <65 mmHG: No New Acute Mental Status Change: No Is the patient on CPAP, BIPAP,: No Vital Signs Date Time Temp Pulse Resp B/P (MAP) Pulse Ox O2 Delivery O2 Flow Rate FiO2 02/27/25 16:42 98.7 112 17 130/80 95 98.7 Critical Care Note Critical Care Time?: No Stability Stability form required: No Heart Score Heart Score: Heart Score Response (Comments) Value History N/A 0 EKG N/A 0 Age N/A 0 Risk Factors N/A 0 Troponin N/A 0 Total 0 I personally scribed for CHANTAL VARGAS ([email or web address]) on 02/27/25 at 17:13. Electronically submitted by Cally Wooten ([email or web address]). CHANTAL VARGAS Feb 27, 2025 17:13
[2025-02-27 17:53] LABS: Potassium 4.0 mmol/L (3.5-5.1); Sodium 142 mmol/L (136-145)
[2025-02-27 17:54] LABS: Anion Gap 8 (5-15); Carbon Dioxide 24 mmol/L (20-31); Hematocrit 32.3 % (41.0-53.0); Hemoglobin 10.5 g/dL (13.5-17.5); Mean Corpuscular Hemoglobin 32.0 pg (28.0-32.0); Mean Corpuscular Volume 98.4 fL (80.0-100.0); Nucleated Red Blood Cells % 0.1 %
[2025-02-27 17:55] LABS: Calcium 10.3 mg/dL (8.7-10.4)
[2025-02-27 18:00] LABS: BUN/Creatinine Ratio 15.0 (10.0-20.0); Blood Urea Nitrogen 20 mg/dL (9-23); Glucose 102 mg/dL (74-106)
[2025-02-27 18:02] LABS: Chloride 110 mmol/L (98-107)
--- NOTE | 2025-02-27 18:08 | DVHINCON2 ---
Date of service: Feb 27, 2025 Referring Physician ER Reason for Consultation Patient underwent recent right ESWL on 02/21/25 for management of 10 mm right renal stone. He is now admitted for SOB. History of Present Illness Patient underwent recent right ESWL on 02/21/25 for management of 10 mm right renal stone. He is now admitted for SOB. Past Medical History Kidney stones Past Surgical History ESWL Family History: Patient reports no known family medical history. Allergies: Coded Allergies: NO KNOWN ALLERGIES (Unverified , 01/04/19) Home Meds Reported Medications Sertraline Hcl (Sertraline Hcl) 50 Mg Tab, 150 MG PO DAILY for 30 Days, MG 02/20/25 Atorvastatin Calcium (Lipitor) 20 Mg Tab, 1 TAB PO DAILY, #90 TAB 1 Refill 02/08/25 Semaglutide (Ozempic) 2 Mg/3 Ml Inj, 2 MG SC, INJ 02/08/25 Sertraline Hcl (Zoloft) 50 Mg Tab, 50 MG PO, TAB 02/08/25 Review of Systems SOB Vital Signs Vital Signs Date Time Temp Pulse Resp B/P (MAP) Pulse Ox O2 Delivery O2 Flow Rate FiO2 02/27/25 16:42 98.7 112 17 130/80 95 98.7 Labs/Diagnostic Data Labs Test 02/27/25 17:26 Range/Units White Blood Count 8.6 4.4-10.8 10^3/uL Red Blood Count 3.29 L 4.5-5.90 10^6/uL Hemoglobin 10.5 L 13.5-17.5 g/dL Hematocrit 32.3 #L 41.0-53.0 % Mean Corpuscular Volume 98.4 # 80.0-100.0 fL Mean Corpuscular Hemoglobin 32.0 28.0-32.0 pg Mean Corpuscular Hemoglobin Concent 32.5 32.0-36.0 g/dL Red Cell Distribution Width 14.8 H 11.8-14.3 % Platelet Count 216 # 140-450 10^3/uL Mean Platelet Volume 7.7 6.9-10.8 fL Neutrophils (%) (Auto) 77.4 37.0-80.0 % Lymphocytes (%) (Auto) 10.9 10.0-50.0 % Monocytes (%) (Auto) 8.7 0.0-12.0 % Eosinophils (%) (Auto) 2.6 0.0-7.0 % Basophils (%) (Auto) 0.4 0.0-2.0 % Neutrophils # (Auto) 6.6 1.6-8.6 10 ^3/uL Lymphocytes # (Auto) 0.9 0.4-5.4 10 ^3/uL Monocytes # (Auto) 0.7 0-1.3 10 ^3/uL Eosinophils # (Auto) 0.2 0-0.8 10 ^3/uL Basophils # (Auto) 0 0-0.2 10 ^3/uL Nucleated Red Blood Cells 0.1 % Assessment s/p right ESWL SOB Plan/Recommendation ER is working him up for PE BMP CT Stone protocol ordered. Plan discussed with: Other MUMTAZ BASURTO MD Feb 27, 2025 18:08
[2025-02-27 19:34] LABS: Urine Protein, UAD Negative (Negative)
== END 2025-02-27 20:15 | disposition left against medical advice (07) ==
LOC: ER 16:41
DX: R10.9 Unspecified abdominal pain (principal); F17.210 Nicotine dependence, cigarettes, uncomplicated; Z79.899 Other long term (current) drug therapy
CPT/HCPCS: 36415; 80048; 81001; 85025

== ENCOUNTER 2025-02-28 10:34 | Inpatient (IN) | payer OTHER ==
[~2025-02-28] VITALS: Ht 193 cm; Wt 140.5 kg
--- NOTE | 2025-02-28 11:17 | ED.PDOC ---
History of Present Illness HPI Comments 59 year old male with PMHx kidney stones presents to the ED with a chief complaint of abdominal pain onset 5 days. Patient states he had a lithotripsy done 1 week ago, 5 days ago he began experiencing abdominal distension with discomfort, shortness of breath, difficulty urinating. Patient spoke with Urologist, Dr. Huff, recommended to come to ED, stated he will consult patient. Patient was seen in ED yesterday 02/27/25, eloped. Denies fever, chill, nausea, vomiting, diarrhea, hematemesis. No other symptoms or modifying factors present at this time. Chief Complaint: Shortness of Breath Time Seen by MD: 11:00 Primary Care Provider: CAYETANO Parry Notes: Medications, Allergies Allergies: Coded Allergies: NO KNOWN ALLERGIES (Unverified , 01/04/19) Home Meds Reported Medications Sertraline Hcl (Sertraline Hcl) 50 Mg Tab, 150 MG PO DAILY for 30 Days, MG 02/20/25 Atorvastatin Calcium (Lipitor) 20 Mg Tab, 1 TAB PO DAILY, #90 TAB 1 Refill 02/08/25 Semaglutide (Ozempic) 2 Mg/3 Ml Inj, 2 MG SC, INJ 02/08/25 Sertraline Hcl (Zoloft) 50 Mg Tab, 50 MG PO, TAB 02/08/25 Information Source: Patient Mode of Arrival: Ambulatory Severity: Moderate Timing: Days Duration: Since onset Prehospital treatment: None Past Medical History PAST MEDICAL HISTORY: Kidney Stones Surgical History: Hernia Repair Family History Family History: Reviewed,noncontributory to illness, No family hx of Cancer, No family hx of DM Social History Smoker: Cigarettes, Greater Than 1 Pack/Day Alcohol: Occasionally Drugs: Denies Drug Use Lives In: Home Constitutional: denies: chills, diaphoresis, fatigue, fever, malaise, sweats, weakness, others EENTM: denies: blurred vision, double vision, ear bleeding, ear discharge, ear drainage, ear pain, ear ringing, eye pain, eye redness, hearing loss, mouth pain, mouth swelling, nasal discharge, nose bleeding, nose congestion, nose pain, photophobia, tearing, throat pain, throat swelling, voice changes, others Respiratory: reports: shortness of breath; denies: cough, hemoptysis, orthopnea, SOB at rest, SOB with excertion, stridor, wheezing, others Cardiovascular: denies: chest pain, dizzy spells, diaphoresis, Dyspnea on exertion, edema, irregular heart beat, left arm pain, lightheadedness, palpitations, PND, syncope, others Gastrointestinal: reports: abdomen distended, abdominal pain; denies: blood streaked bowels, constipated, diarrhea, dysphagia, difficulty swallowing, hematemesis, melena, nausea, poor appetite, poor fluid intake, rectal bleeding, rectal pain, vomiting, others Genitourinary: reports: flank pain; denies: burning, dysuria, frequency, hematuria, incontinence, penile discharge, penile sore, pain, testicle pain, testicle swelling, urgency, others Neurological: denies: dizziness, fainting, headache, left sided numbness, left sided weakness, numbness, paresthesia, pre-existing deficit, right sided numbness, right sided weakness, seizure, speech problems, tingling, tremors, weakness, others Musculoskeletal: denies: back pain, gout, joint pain, joint swelling, muscle pain, muscle stiffness, neck pain, others Integumetry: denies: bruises, change in color, change in hair/nails, dryness, laceration, lesions, lumps, rash, wounds, others Allergic/Immunocompromised: denies: Difficulty Healing, Frequent Infections, Hives, Itching, others Hematologic/Lymphatic: denies: anemia, blood clots, easy bleeding, easy bruising, swollen glands, others Endocrine: denies: excessive hunger, excessive sweating, excessive thirst, excessive urination, flushing, intolerance to cold, intolerance to heat, unexplained weight gain, unexplained weight loss, others Psychiatric: denies: anxiety, bipolar disorder, depression, hopeless, panic disorder, schizophrenia, sleepless, suicidal, others All Other Systems: Reviewed and Negative Physical Exam General Appearance: Moderate Distress, Normal HEENT: Normal ENT Inspection, Pharynx Normal, TMs Normal Neck: Full Range of Motion, Non-Tender, Normal, Normal Inspection Respiratory: Chest Non-Tender, Lungs Clear, No Accessory Muscle Use, No Re spiratory Distress, Normal Breath Sounds Cardiovascular: No Edema, No JVD, No Murmur, No Gallop, Normal Peripheral Pulses, Regular Rate/Rhythm Breast Exam: Deferred Gastrointestinal: Distended, No Organomegaly, No Pulsatile Mass, Normal Bowel Sounds, Soft Genitalia: Deferred Pelvic: Deferred Rectal: Deferred Extremities: No calf tenderness, Normal capillary refill, Normal inspection, Normal range of motion, Non-tender, No pedal edema Musculoskeletal : Apperance: Normal Neurologic: Alert, unit nurse II-XII nml as Tested, No Motor Deficits, Normal Affect, Normal Mood, No Sensory Deficits Cerebellar Function: Normal Reflexes: Normal Skin: Dry, Normal Color, Warm Peripheral Pulses: 3+ Radial (R), 3+ Radial (L) Lymphatic: No Adenopathy Was a procedure done? Was a procedure done?: No EKG EKG : Pulse Rate (adult): 96 Cardiac Rhythm: NSR Differential Dx Considerations may include: Kidney stone Ileus X-Ray, Labs, Meds, VS Vital Signs Date Time Temp Pulse Resp B/P (MAP) Pulse Ox O2 Delivery O2 Flow Rate FiO2 02/28/25 12:08 102 19 108/70 (83) 94 02/28/25 11:17 96 02/28/25 10:45 96 02/28/25 10:39 18 95 Room Air* 0 21 02/28/25 10:35 99.3 107 18 115/71 95 99.3 Lab Test 02/28/25 11:51 02/28/25 11:26 Range/Units White Blood Count 8.4 4.4-10.8 10^3/uL Red Blood Count 3.23 L 4.5-5.90 10^6/uL Hemoglobin 10.3 L 13.5-17.5 g/dL Hematocrit 30.6 L 41.0-53.0 % Mean Corpuscular Volume 94.5 80.0-100.0 fL Mean Corpuscular Hemoglobin 32.0 28.0-32.0 pg Mean Corpuscular Hemoglobin Concent 33.8 32.0-36.0 g/dL Red Cell Distribution Width 13.6 11.8-14.3 % Platelet Count 239 140-450 10^3/uL Mean Platelet Volume 8.0 6.9-10.8 fL Neutrophils (%) (Auto) 71.3 37.0-80.0 % Lymphocytes (%) (Auto) 14.7 10.0-50.0 % Monocytes (%) (Auto) 10.3 0.0-12.0 % Eosinophils (%) (Auto) 2.8 0.0-7.0 % Basophils (%) (Auto) 0.9 0.0-2.0 % Neutrophils # (Auto) 6.0 1.6-8.6 10 ^3/uL Lymphocytes # (Auto) 1.2 0.4-5.4 10 ^3/uL Monocytes # (Auto) 0.9 0-1.3 10 ^3/uL Eosinophils # (Auto) 0.2 0-0.8 10 ^3/uL Basophils # (Auto) 0.1 0-0.2 10 ^3/uL Nucleated Red Blood Cells 0.0 % Sodium Level 142 136-145 mmol/L Potassium Level 4.0 3.5-5.1 mmol/L Chloride Level 110 H 98-107 mmol/L Carbon Dioxide Level 24 20-31 mmol/L Anion Gap 8 5-15 Blood Urea Nitrogen 18 9-23 mg/dL Creatinine 1.37 H 0.700-1.30 mg/dL Glomerular Filtration Rate Calc 60 >90 mL/min BUN/Creatinine Ratio 13.1 10.0-20.0 Serum Glucose 99 74-106 mg/dL Calcium Level 10.4 8.7-10.4 mg/dL Troponin I High Sensitivity 4 </=54 ng/L Urine Color Yellow Yellow Urine Clarity Clear Clear Urine pH 6.5 5.0-9.0 Urine Specific [place] 1.020 1.001-1.035 Urine Protein Trace H Negative Urine Ketones Negative Negative Urine Blood Negative Negative /uL Urine Nitrite Negative Negative Urine Bilirubin Negative Negative Urine Urobilinogen Normal Negative mg/dL Urine Leukocyte Esterase Trace Negative /uL Urine RBC 4 0 - 3 /hpf Urine Microscopic WBC 6 H 0-3 /HPF Urine Squamous Epithelial Cells Few <5 /hpf Urine Bacteria None seen None Seen /hpf Urine Mucus Few None Seen Urine Glucose Normal Normal mg/dL Patient alert. Complaining of abdominal discomfort. Vitals stable. Answering questions. Abdomen is distended. Reviewed his previous visit. UA shows UTI. WBC within normal limits. Continues to have abdominal discomfort. Blood pressure on the low side. Was given Rocephin. Explained to the patient. Continue monitoring. Time of 1ST Reevaluation: 11:30 Reevaluation 1ST: Unchanged Patient Education/Counseling: Diagnosis, Treatment, Prognosis Family Education/Counseling: No Family Present SEPSIS Sepsis Screen Date sepsis recognized/suspect: Feb 28, 2025 Time Sepsis recognized/suspect: 1035 Recent Procedure: No On Antibiotic Therapy: No Respiratory Rate >20: No Heart Rate >90: Yes Temp<36 C (96.8 F) or >38.3 C: No SBP <90 or MAP <65 mmHG: No New Acute Mental Status Change: No Is the patient on CPAP, BIPAP,: No Physician Orders Chest Portable (02/28/25 11:20) Electrocardigram (02/28/25 12:13) Ct Ab Pel Wo Con-No Oral Or Iv (02/28/25 13:01) Vital Signs Date Time Temp Pulse Resp B/P (MAP) Pulse Ox O2 Delivery O2 Flow Rate FiO2 02/28/25 12:08 102 19 108/70 (83) 94 02/28/25 11:17 96 02/28/25 10:45 96 02/28/25 10:39 18 95 Room Air* 0 21 02/28/25 10:35 99.3 107 18 115/71 95 99.3 Laboratory Tests Test 02/28/25 11:51 White Blood Count 8.4 10^3/uL (4.4-10.8) Departure 1 Departure Time of Disposition: 13:03 Impression: Primary Impression: Pyelonephritis Disposition: ADMITTED INPATIENT Admit to: Med Surg Condition: Guarded Critical Care Note Critical Care Time?: No Stability Stability form required: No Heart Score Heart Score: Heart Score Response (Comments) Value History N/A 0 EKG N/A 0 Age N/A 0 Risk Factors N/A 0 Troponin N/A 0 Total 0 I personally scribed for MICHELLE WHITESIDE MD ([email or web address]) on 02/28/25 at 11:17. Electronically submitted by Cally Wooten ([email or web address]). I personally scribed for MICHELLE WHITESIDE MD ([email or web address]) on 02/28/25 at 11:17. Electronically submitted by Cally Wooten ([email or web address]). MICHELLE WHITESIDE MD Feb 28, 2025 11:17
--- NOTE | 2025-02-28 11:52 | DVH ---
EXAM: XY CHEST PORTABLE HISTORY: sob COMPARISON: XY CHEST XRAY 1 VIEW on DOS: 02/21/25 TECHNIQUE: Portable AP view of the chest was performed. FINDINGS: No pneumothorax, consolidative infiltrates, or pulmonary edema. The heart is not enlarged. There is mild thoracic degenerative disc disease. No fractures are identified about the bony thorax. IMPRESSION: No acute intrathoracic process.
[2025-02-28 12:17] LABS: Hematocrit 30.6 % (41.0-53.0); Hemoglobin 10.3 g/dL (13.5-17.5); Mean Corpuscular Hemoglobin 32.0 pg (28.0-32.0); Mean Corpuscular Volume 94.5 fL (80.0-100.0); Nucleated Red Blood Cells % 0.0 %
[2025-02-28 12:21] LABS: Potassium 4.0 mmol/L (3.5-5.1); Sodium 142 mmol/L (136-145)
[2025-02-28 12:22] LABS: Anion Gap 8 (5-15); Carbon Dioxide 24 mmol/L (20-31)
[2025-02-28 12:24] LABS: Calcium 10.4 mg/dL (8.7-10.4); Chloride 110 mmol/L (98-107)
[2025-02-28 12:27] LABS: BUN/Creatinine Ratio 13.1 (10.0-20.0); Blood Urea Nitrogen 18 mg/dL (9-23); Glucose 99 mg/dL (74-106)
[2025-02-28 12:43] LABS: Urine Protein, UAD TRACE (Negative)
--- NOTE | 2025-02-28 15:01 | DVH ---
Indication: distended Technique: CT axial images of the abdomen and pelvis are obtained without contrast. Coronal and sagittal reformats were obtained. Radiation Dose Information: CTDI volume is 23.57 mGy. Dose-length product is 1462.46 mGy*cm Comparison: CT CT AB PEL WO CON-NO ORAL OR IV on DOS: 02/08/25, renal ultrasound from 02/22/2025 this is FINDINGS: There is limited interpretation of the abdomen and pelvis without administration of intravenous contrast. The lung bases demonstrate tiny right pleural effusion. Adrenal glands, spleen, pancreas and liver unremarkable in shape. Gallbladder is contracted. There is large right renal perinephric hemorrhage measuring 12.6 x 16.5 cm. There is also hematoma extending into the retroperitoneum, pelvis/ presacral tissues. Multiple nonobstructing right renal calculi measuring up to 15 mm. Left kidney demonstrates no hydronephrosis. Nonobstructing left renal calculi measuring up to 3 mm. Stomach is partially distended. Small bowel loops are normal in caliber. Colonic diverticular disease. Moderate volume stool in the colon. Normal appendix. Abdominal aorta demonstrates atherosclerotic calcification disease. IVC is displaced anteriorly secondary to the perirenal hemorrhage on the right. Bladder partially distended. No inguinal lymphadenopathy. Moderate thoracolumbar degenerative disc disease IMPRESSION: Limited evaluation without contrast. Large right renal perinephric hemorrhage measuring 12.6 x 16.5 cm. Recommend surgical /urology consultation for further evaluation management to exclude active bleeding, page kidney There is extension of the hemorrhage/ hematoma into the retroperitoneum and pelvis. Bilateral nonobstructing renal calculi. Colonic diverticular disease. Findings discussed with Dr Martin , at 02/28/2025 03:02 PM3, and acknowledged receipt and understanding of the findings. ..
[2025-02-28] MEDS: SODIUM CHLORIDE 0.9% 1,000 ML IV ONE ×2 (15:35→17:00)
[2025-02-28 16:51] VITALS: O2SAT 97
[2025-02-28] MEDS ORDERED: MORPHINE SULFATE INJ 2 MG/ml SYRG IV PRN (17:00)
[2025-02-28] MEDS ORDERED: POLYETHYLENE GLYCOL 17 GM PWDR PO PRN (17:00)
[2025-02-28] MEDS ORDERED: NITROGLYCERIN 0.4 MG SL TAB SL PRN (17:00)
[2025-02-28] MEDS ORDERED: ACETAMINOPHEN 325 MG TAB PO PRN (17:00)
[2025-02-28] MEDS ORDERED: SENNA 8.6 MG TAB PO PRN (17:00)
[2025-02-28 17:28] LABS: Alanine Aminotransferase 15.0 U/L (7-40); Albumin 3.6 g/dL (3.2-4.8); Alkaline Phosphatase 76.0 U/L (46-116); Bilirubin, Direct 0.3 mg/dL (<0.3); Bilirubin, Total 0.9 mg/dL (0.2-1.0)
[2025-02-28 17:47] LABS: Total Protein 5.7 g/dL (5.7-8.2)
[2025-02-28 18:04] LABS: Hematocrit 31.0 % (41.0-53.0); Hemoglobin 10.6 g/dL (13.5-17.5); Mean Corpuscular Hemoglobin 32.3 pg (28.0-32.0); Mean Corpuscular Volume 93.9 fL (80.0-100.0); Nucleated Red Blood Cells % 0.0 %
[2025-02-28 18:22] LABS: INR 0.97 (0.9-1.15); Partial Thromboplastin Time 31.2 SEC (24.5-34.5); Prothrombin Time 10.3 sec (9.3-11.8)
[2025-02-28] MEDS: ONDANSETRON HCL 4 MG/2 ML VIAL ONE (18:47)
[2025-02-28] MEDS: ONDANSETRON HCL 4 MG/2 ML VIAL IV PRN (18:48)
[2025-02-28] MEDS: MORPHINE SULFATE INJ 2 MG/ml SYRG IV PRN (18:49)
[2025-02-28 19:50] VITALS: PULSE 86; RESP 17; O2SAT 95
--- NOTE | 2025-02-28 20:49 | DVHHPRES ---
History of Present Illness Resident Creating Document: JOSE LÓPEZ RESIDENT History of Present Illness Patient is a 59-year-old male with past medical history of dyslipidemia, nephrolithiasis who comes in due to right-sided flank pain. Patient was recently admitted to this facility about a week ago for similar right-sided flank pain was found to have mild right hydronephrosis with an obstructive stone in the UPJ following which he underwent ESWL and was later discharged from the hospital. Patient reports since he has been discharge he has been having some discomfort in the right flank area as well as in the right lower middle back for which he contacted his urologist who recommended to visit the ED for further evaluation. In the ED CT abdomen pelvis without contrast was done which showed large right renal perinephric hemorrhage measuring 12.6 X16.5 cm with a possible extension of hemorrhage/hematoma into the retroperitoneum and pelvis. Urology were consulted and patient will be admitted for further evaluation. Past Medical History: Dyslipidemia, morbid obesity, nephrolithiasis, depression Past Surgical History: Right ESWL in 2019 and in February 2025 Past Social History: Smokes cigarettes more than 1 pack per day, occasional alcohol use, denies any other drug use Review of Systems Review of Systems Reports of intermittent right flank and right suprapubic pain Denies fever, chills, nausea or vomiting No shortness a breath or chest pain reported Allergies: Coded Allergies: NO KNOWN ALLERGIES (Unverified , 01/04/19) Medications Current Medications Medications Dose Ordered Sig/Veronica Route Start Time Stop Time Status Last Admin Dose Admin Morphine Sulfate 2 mg Q30M PRN IV 02/28/25 17:00 Nitroglycerin 0.4 mg Q5MINP PRN SL 02/28/25 17:00 Ceftriaxone Sodium 50 ml @ 100 mls/hr DAILY@09 IV 03/01/25 09:00 Morphine Sulfate 2 mg Q6HPRN PRN IV 02/28/25 17:00 02/28/25 18:49 2 MG Acetaminophen/ Hydrocodone Bitart 1 tab Q6HPRN PRN PO 02/28/25 17:00 Acetaminophen 650 mg Q6HP PRN PO 02/28/25 17:00 Polyethylene Glycol 17 gm DAILYPRN PRN PO 02/28/25 17:00 Sennosides 8.6 mg QHSP PRN PO 02/28/25 17:00 Ondansetron HCl 4 mg Q6HPRN PRN IV 02/28/25 18:30 02/28/25 18:48 4 MG Exam Vital Signs Vital Signs Date Time Temp Pulse Resp B/P (MAP) Pulse Ox O2 Delivery O2 Flow Rate FiO2 02/28/25 20:07 86 17 113/69 02/28/25 18:00 98 02/28/25 16:51 98.2 98.2 02/28/25 16:51 Room Air* 0 21 Exam Skin - Patients skin is warm and dry. HEENT - normocephalic, atraumatic, moist mucous membranes, no conjunctival pallor or scleral icterus Neck - full ROM, no LAD, no JVD Pulmonary - B/L clear breath sounds without any wheezing or rales cardiovascular - regular S1,S2 heard, no added sounds, no murmurs heard. GI - soft, obese abdomen with mild tenderness to palpation in the right suprapubic area. Right CVA tenderness positive Neurological - Patient is A/O X4 . Bilateral upper extremity strength 5/5, bilateral lower extremity strength 5/5, no facial droop, normal speech, no tremor, no sensory deficiets. Labs/Xrays Labs Test 02/28/25 17:31 02/28/25 11:51 02/28/25 11:26 Range/Units White Blood Count 7.8 4.4-10.8 10^3/uL Red Blood Count 3.30 L 4.5-5.90 10^6/uL Hemoglobin 10.6 L 13.5-17.5 g/dL Hematocrit 31.0 L 41.0-53.0 % Mean Corpuscular Volume 93.9 80.0-100.0 fL Mean Corpuscular Hemoglobin 32.3 H 28.0-32.0 pg Mean Corpuscular Hemoglobin Concent 34.3 32.0-36.0 g/dL Red Cell Distribution Width 13.7 11.8-14.3 % Platelet Count 228 140-450 10^3/uL Mean Platelet Volume 8.0 6.9-10.8 fL Neutrophils (%) (Auto) 72.8 37.0-80.0 % Lymphocytes (%) (Auto) 14.3 10.0-50.0 % Monocytes (%) (Auto) 8.9 0.0-12.0 % Eosinophils (%) (Auto) 3.2 0.0-7.0 % Basophils (%) (Auto) 0.8 0.0-2.0 % Neutrophils # (Auto) 5.6 1.6-8.6 10 ^3/uL Lymphocytes # (Auto) 1.1 0.4-5.4 10 ^3/uL Monocytes # (Auto) 0.7 0-1.3 10 ^3/uL Eosinophils # (Auto) 0.3 0-0.8 10 ^3/uL Basophils # (Auto) 0.1 0-0.2 10 ^3/uL Nucleated Red Blood Cells 0.0 % Prothrombin Time 10.3 9.3-11.8 sec Prothrombin Time INR 0.97 0.9-1.15 Activated Partial Thromboplast Time 31.2 24.5-34.5 SEC Sodium Level 142 136-145 mmol/L Potassium Level 4.0 3.5-5.1 mmol/L Chloride Level 110 H 98-107 mmol/L Carbon Dioxide Level 24 20-31 mmol/L Anion Gap 8 5-15 Blood Urea Nitrogen 18 9-23 mg/dL Creatinine 1.37 H 0.700-1.30 mg/dL Glomerular Filtration Rate Calc 60 >90 mL/min BUN/Creatinine Ratio 13.1 10.0-20.0 Serum Glucose 99 74-106 mg/dL Calcium Level 10.4 8.7-10.4 mg/dL Total Bilirubin 0.9 0.2-1.0 mg/dL Direct Bilirubin 0.3 <0.3 mg/dL Aspartate Amino Transferase (AST) 17 13-40 U/L Alanine Aminotransferase (ALT) 15 7-40 U/L Alkaline Phosphatase 76 46-116 U/L Troponin I High Sensitivity 4 </=54 ng/L Total Protein 5.7 5.7-8.2 g/dL Albumin 3.6 3.2-4.8 g/dL Urine Color Yellow Yellow Urine Clarity Clear Clear Urine pH 6.5 5.0-9.0 Urine Specific [place] 1.020 1.001-1.035 Urine Protein Trace H Negative Urine Ketones Negative Negative Urine Blood Negative Negative /uL Urine Nitrite Negative Negative Urine Bilirubin Negative Negative Urine Urobilinogen Normal Negative mg/dL Urine Leukocyte Esterase Trace Negative /uL Urine RBC 4 0 - 3 /hpf Urine Microscopic WBC 6 H 0-3 /HPF Urine Squamous Epithelial Cells Few <5 /hpf Urine Bacteria None seen None Seen /hpf Urine Mucus Few None Seen Urine Glucose Normal Normal mg/dL SEPSIS Sepsis Screen Date sepsis recognized/suspect: Feb 28, 2025 Time Sepsis recognized/suspect: 1650 Recent Procedure: No On Antibiotic Therapy: No Respiratory Rate >20: No Heart Rate >90: No Temp<36 C (96.8 F) or >38.3 C: No SBP <90 or MAP <65 mmHG: No New Acute Mental Status Change: No Is the patient on CPAP, BIPAP,: No Physician Orders Ct Ab Pel Wo Con-No Oral Or Iv (02/28/25 13:01) Admit (02/28/25 16:47) Morphine Sulfate Injection (02/28/25 17:00) Oxygen By Nasal Cannula (02/28/25 16:47) Stat Ekg For Chest Pain (02/28/25 16:47) Notify Md Of Changes From Base (02/28/25 16:47) Knobber For 24 Hours (02/28/25 16:47) Emergency Dysrhythmia Protocol (02/28/25 16:47) Nitroglycerin Sublingual (Ntrostat Subli (02/28/25 17:00) Ceftriaxone 1gm/50ml (Rocephin) (03/01/25 09:00) Complete Blood Count (03/01/25 04:00) Basic Metabolic Panel (03/01/25 04:00) Morphine Sulfate Injection (02/28/25 17:00) Hydrocodone-Acet 5/325mg Tab ([place] 5/32 (02/28/25 17:00) Acetaminophen Tablet (Tylenol Tablet) (02/28/25 17:00) * Urology Consult (02/28/25 16:47) Regular Diet (02/28/25 Dinner) Polyethylene Glycol 17g Powder (Miralax (02/28/25 17:00) Senna Pod Tablet (Senokot Tablet) (02/28/25 17:00) Sodium Chloride 0.9% (02/28/25 17:00) Strict I & O QSHIFT (02/28/25 16:47) Strict I&O (02/28/25 ) Ondansetron Hcl (Zofran) (02/28/25 18:30) Vital Signs Date Time Temp Pulse Resp B/P (MAP) Pulse Ox O2 Delivery O2 Flow Rate FiO2 02/28/25 20:07 86 17 113/69 02/28/25 18:49 85 18 128/79 02/28/25 18:00 86 12 117/67 (84) 98 02/28/25 16:51 98.2 92 13 112/73 (86) 97 98.2 02/28/25 16:51 93 02/28/25 16:51 97 Room Air* 0 21 02/28/25 16:26 98.8 86 18 112/72 (85) 95 98.8 02/28/25 14:47 98.9 92 18 110/72 (85) 95 98.9 Laboratory Tests Test 02/28/25 11:51 02/28/25 17:31 White Blood Count 8.4 10^3/uL (4.4-10.8) 7.8 10^3/uL (4.4-10.8) Medications Medications Dose Ordered Sig/Veronica Route Start Time Stop Time Status Last Admin Dose Admin Ceftriaxone Sodium 50 ml @ 100 mls/hr ONCE ONCE IV 02/28/25 13:15 02/28/25 13:44 DC 02/28/25 18:25 100 MLS/HR Morphine Sulfate 2 mg Q6HPRN PRN IV 02/28/25 17:00 02/28/25 18:49 2 MG Ondansetron HCl 4 mg Q6HPRN PRN IV 02/28/25 18:30 02/28/25 18:48 4 MG Sodium Chloride 1,000 ml @ 1,000 mls/hr Q1H ONCE IV 02/28/25 13:15 02/28/25 14:14 DC 02/28/25 18:25 1,000 MLS/HR Assessment/Plan Assessment/Plan Right renal perinephric hemorrhage s/p ESWL Bilateral nonobstructing nephrolithiasis ANTONIA on CKD likely due to obstruction - CT abdomen pelvis revealed large right renal perinephric hemorrhage measuring 12.6616.5 cm with a possible extension of hemorrhage/hematoma into the retroperitoneum and pelvis - H&H stable - urology consulted - repeat CT abdomen pelvis in 48 hours - monitor hemoglobin and keep above 7 - strictly avoid any anticoagulation, antiplatelet drugs History of depression - continued on sertraline 150 mg daily PUD prophylaxis: Protonix Goals of care discussed with the patient for over 16 minutes. Full code Time spent: 37 minutes Plan discussed with Dr. Plascencia Plan discussed with: Patient, Other (RN) My Orders Orders - JOSE LÓPEZ Procedure Category Date Status Time Admit ADMIT 02/28/25 Transmitted 16:47 Morphine Sulfate PHA 02/28/25 In Process Injection 17:00 Oxygen By Nasal RT 02/28/25 Transmitted Cannula 16:47 Stat Ekg For Chest JACINTA 02/28/25 In Process Pain 16:47 Notify Md Of Changes JACINTA 02/28/25 In Process From Base 16:47 Knobber For JACINTA 02/28/25 In Process 24 Hours 16:47 Emergency Dysrhythmia JACINTA 02/28/25 In Process Protocol 16:47 Nitroglycerin PHA 02/28/25 In Process Sublingual (Ntrostat 17:00 Ceftriaxone 1gm/50ml PHA 03/01/25 In Process (Rocephin) 09:00 Complete Blood Count LAB 03/01/25 Verified 04:00 Basic Metabolic Panel LAB 03/01/25 Verified 04:00 Morphine Sulfate PHA 02/28/25 In Process Injection 17:00 Hydrocodone-Acet PHA 02/28/25 In Process 5/325mg Tab ([place] 17:00 Acetaminophen Tablet PHA 02/28/25 In Process (Tylenol Tablet) 17:00 * Urology Consult CONS 02/28/25 Transmitted 16:47 Regular Diet DIET 02/28/25 Transmitted Dinner Polyethylene Glycol PHA 02/28/25 In Process 17g Powder (Miralax 17:00 Senna Pod Tablet PHA 02/28/25 In Process (Senokot Tablet) 17:00 Sodium Chloride 0.9% PHA 02/28/25 In Process 17:00 Strict I & O JACINTA 02/28/25 In Process 16:47 Strict I&O ED NURSING 02/28/25 Transmitted Date of Service: Feb 28, 2025 Billing Provider: STEPHEN PLASCENCIA MD Common Visit Codes: 99493-AAAQTVR INP/OBS CARE (HIGH) Secondary Visit Codes: [id number] CARE PLAN 30 MINUTES JOSE LÓPEZ RESIDENT Feb 28, 2025 20:49
[2025-02-28 21:47] VITALS: BP 120/81; PULSE 92; RESP 16; RESP 18; TEMP 98.3; O2SAT 95; O2SAT 96
[2025-02-28 21:50] VITALS: BP 120/81; PULSE 92; RESP 16; TEMP 98.3; O2SAT 96
[2025-02-28] MEDS: HYDROcodone-ACET 5/325MG TAB PO PRN (22:57)
[2025-03-01] VITALS (8 sets, daily range): BP systolic 104–141; BP diastolic 64–86; PULSE 85–93; RESP 17–19; TEMP 98.1–98.5; O2SAT 93–95
[2025-03-01] MEDS: PANTOPRAZOLE 40 MG TAB PO SCH ×2 (05:44→22:02)
[2025-03-01 07:23] LABS: Calcium 9.8 mg/dL (8.7-10.4); Potassium 4.7 mmol/L (3.5-5.1); Sodium 142 mmol/L (136-145)
[2025-03-01 07:24] LABS: Anion Gap 6 (5-15); Carbon Dioxide 25 mmol/L (20-31)
[2025-03-01 07:30] LABS: BUN/Creatinine Ratio 20.9 (10.0-20.0); Chloride 111 mmol/L (98-107); Glucose 97 mg/dL (74-106)
[2025-03-01 07:33] LABS: Blood Urea Nitrogen 24 mg/dL (9-23)
[2025-03-01] MEDS: SERTRALINE HCL 50 MG TAB PO SCH (09:21)
[2025-03-01 11:14] LABS: Hematocrit 29.0 % (41.0-53.0); Hemoglobin 9.6 g/dL (13.5-17.5); Mean Corpuscular Hemoglobin 31.3 pg (28.0-32.0); Mean Corpuscular Volume 94.6 fL (80.0-100.0); Nucleated Red Blood Cells % 0.1 %
--- NOTE | 2025-03-01 14:11 | ECG ---
[facility] Test Date: 2025-02-28 Test Time: 10:45:15 Pat Name: KAITLYNN SIMONS Department: [facility] ED Room: 0297T A Gender: M [employer] Operator: ezio : [id number] Requested By: MICHELLE WHITESIDE Order Number: [id number] Reading MD: Pascual Lin Measurements Intervals [place] Rate: 96 P: 55 W[place]: 169 QRS: 73 QRSD: 94 T: 1 QT: 330 QTc: 417 Interpretive Statements Sinus rhythm Electronically Signed On 03-01-2025 17:47:27 PST by Pascual Lin Please click the below link to view image of tracing.
[2025-03-02] VITALS (8 sets, daily range): BP systolic 108–124; BP diastolic 73–79; PULSE 82–91; RESP 15–18; TEMP 97.8–98.9; O2SAT 95–96
[2025-03-02 06:54] LABS: Potassium 4.4 mmol/L (3.5-5.1); Sodium 142 mmol/L (136-145)
[2025-03-02 06:55] LABS: Anion Gap 7 (5-15); Calcium 10.1 mg/dL (8.7-10.4); Carbon Dioxide 25 mmol/L (20-31)
[2025-03-02 07:00] LABS: BUN/Creatinine Ratio 17.3 (10.0-20.0); Blood Urea Nitrogen 18 mg/dL (9-23); Glucose 93 mg/dL (74-106)
[2025-03-02 07:01] LABS: Chloride 110 mmol/L (98-107)
[2025-03-02 07:21] LABS: Hematocrit 30.7 % (41.0-53.0); Hemoglobin 10.3 g/dL (13.5-17.5); Mean Corpuscular Hemoglobin 31.1 pg (28.0-32.0); Mean Corpuscular Volume 92.7 fL (80.0-100.0); Nucleated Red Blood Cells % 0.1 %
--- NOTE | 2025-03-02 16:29 | DVHPN2 ---
Subjective I am assuming the care of the patient from today onwards. Patient is here for perinephric hematoma on the right side with a recent history of ESWL of the right side. 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 Medications Current Medications Medications Dose Ordered Sig/Veronica Route Start Time Stop Time Status Last Admin Dose Admin Morphine Sulfate 2 mg Q30M PRN IV 02/28/25 17:00 Nitroglycerin 0.4 mg Q5MINP PRN SL 02/28/25 17:00 Ceftriaxone Sodium 50 ml @ 100 mls/hr DAILY@09 IV 03/01/25 09:00 03/02/25 09:19 100 MLS/HR Morphine Sulfate 2 mg Q6HPRN PRN IV 02/28/25 17:00 02/28/25 18:49 2 MG Acetaminophen/ Hydrocodone Bitart 1 tab Q6HPRN PRN PO 02/28/25 17:00 03/01/25 15:05 1 TAB Acetaminophen 650 mg Q6HP PRN PO 02/28/25 17:00 Polyethylene Glycol 17 gm DAILYPRN PRN PO 02/28/25 17:00 Sennosides 8.6 mg QHSP PRN PO 02/28/25 17:00 Ondansetron HCl 4 mg Q6HPRN PRN IV 02/28/25 18:30 02/28/25 23:51 4 MG Sertraline HCl 150 mg DAILY PO 03/01/25 10:00 03/02/25 09:19 150 MG Pantoprazole Sodium 40 mg BID PO 03/01/25 22:00 03/02/25 09:19 40 MG Laboratory Results Laboratory Tests 03/02/25 06:00 Chemistry Test 03/02/25 06:00 Calcium Level 10.1 mg/dL (8.7-10.4) Urinalysis Test 02/28/25 11:26 Urine Color Yellow (Yellow) Urine Clarity Clear (Clear) Urine pH 6.5 (5.0-9.0) Urine Specific [place] 1.020 (1.001-1.035) Urine Protein Trace (Negative) H Urine Ketones Negative (Negative) Urine Blood Negative /uL (Negative) Urine Nitrite Negative (Negative) Urine Bilirubin Negative (Negative) Urine Urobilinogen Normal mg/dL (Negative) Urine Leukocyte Esterase Trace /uL (Negative) Urine RBC 4 /hpf (0 - 3) Urine Microscopic WBC 6 /HPF (0-3) H Urine Squamous Epithelial Cells Few /hpf (<5) Urine Bacteria None seen /hpf (None Seen) Urine Mucus Few (None Seen) Urine Glucose Normal mg/dL (Normal) Microbiology Microbiology Date/Time Source Procedure Growth Status 02/28/25 22:31 Nose MRSA Screen - Final Complete Assessment/Plan Assessment/Plan 59-year-old male with a recent history of right-sided ureteric stone status post ESWL recently presented to the hospital with a right flank pain found to have 1. Right perinephric hematoma with a recent history of ESWL 2. Bilateral nonobstructing nephrolithiasis 3. Right ureteric stone status post ESWL recently 4. Chronic tobacco use disorder 5. Morbid obesity classII -continue pain meds, Urology consultation. Plan discussed with: Patient My Orders Orders - NILDA MATIAS MD Procedure Category Date Status Time Ct Ab Pel Wo Con-No CT 03/02/25 Logged Oral Or Iv 16:26 Problem List: (1) Ureterolithiasis (2) Right flank pain Date of Service: Mar 01, 2025 Billing Provider: NILDA MATIAS MD Common Visit Codes: [id number] INP/OBS CARE(HIGH) NILDA MATIAS MD Mar 02, 2025 16:29
[2025-03-02] MEDS: NICOTINE 21MG/24 HR TOPICAL PATCH TD ONE (21:55)
[2025-03-03] VITALS (7 sets, daily range): BP systolic 106–131; BP diastolic 70–84; PULSE 65–90; RESP 17–20; TEMP 37; O2SAT 95–97
--- NOTE | 2025-03-03 10:48 | DVH ---
Exam: CT CT AB PEL WO CON-NO ORAL OR IV History: Right perinephric hematoma Comparison Study: CT CT AB PEL WO CON-NO ORAL OR IV on DOS: 02/28/25. Technique: Multidetector spiral CT of the abdomen and pelvis was performed from lung bases to pubic symphysis. Imaging was performed without intravenous contrast. Coronal and sagittal multiplanar reformats were obtained from the axial data set by the technologist. Radiation Dose : 1. Abdomen/Pelvis: CTDIvol 27.2 mGy, DLP 1462.5 mGy*cm. Findings: Evaluation of vasculature and solid organs is limited due to lack of intravenous contrast use. Lung Bases: Lung bases are clear. Visualized portions of the heart and pericardium are unremarkable. Liver: The liver is normal in size. No focal lesions. Gallbladder and Biliary Tree: The gallbladder is unremarkable. No intrahepatic or extrahepatic biliary ductal dilatation. Spleen: Unremarkable Pancreas: The pancreas is grossly unremarkable. Adrenal Glands: Unremarkable Kidneys: There is a large right perinephric hematoma measuring 13 x 17 cm extending into the right lower quadrant/pelvis with Fat stranding extending into the right presacral soft tissues. The appearance is similar to the prior CT from 02/28/2025. There are nonobstructive right renal calculi which measure up to 1.5 cm in the lower pole calyx of the right kidney. Nonobstructive left renal calculi are identified measuring up to 4 mm in the lower pole of the left kidney. Left retroperitoneal fat stranding is noted. No hydronephrosis. GI tract: The stomach is grossly normal in appearance. No evidence of small bowel wall thickening or abnormal dilatation to suggest bowel obstruction. The colon is unremarkable. The appendix is normal in caliber. Peritoneum/mesentery/retroperitoneum. Right retroperitoneal fat stranding due to perinephric hematoma. No evidence of free intraperitoneal air. No ascites. No evidence of suspicious lymphadenopathy. Abdominal Wall: Unremarkable. Vasculature: The visualized abdominal aorta is normal in size and caliber. Evaluation of abdominal and pelvic vessels is limited due to lack of intravenous contrast. Urinary Bladder: Grossly unremarkable for degree of distention. Pelvic Organs: Unremarkable Musculoskeletal: No aggressive focal bony lesions, acute fractures or dislocation. Multilevel lumbar spondylosis. IMPRESSION: 1. Large right perinephric hematoma measuring 13 x 17 cm extending into the right lower quadrant/pelvis. Right perinephric hematoma is similar in appearance and size compared to prior study from 02/28/2025. Evaluation is otherwise limited without intravenous contrast. Bilateral nonobstructive renal calculi measuring up to 1.5 cm in the lower pole calyx of the right kidney similar to prior study.
[2025-03-03] MEDS ORDERED: SERT50TA PO (14:55)
--- NOTE | 2025-03-03 14:57 | DVHDS2 ---
Discharge Summary Date of Admission Feb 28, 2025 at 16:47 Date of Discharge: Mar 03, 2025 Labs/Diagnostic Data: Laboratory Results Test 03/02/25 06:00 02/28/25 17:31 02/28/25 11:51 02/28/25 11:26 White Blood Count 6.5 10^3/uL (4.4-10.8) Red Blood Count 3.31 10^6/uL (4.5-5.90) Hemoglobin 10.3 g/dL (13.5-17.5) Hematocrit 30.7 % (41.0-53.0) Mean Corpuscular Volume 92.7 fL (80.0-100.0) Mean Corpuscular Hemoglobin 31.1 pg (28.0-32.0) Mean Corpuscular Hemoglobin Concent 33.6 g/dL (32.0-36.0) Red Cell Distribution Width 13.7 % (11.8-14.3) Platelet Count 223 10^3/uL (140-450) Mean Platelet Volume 8.1 fL (6.9-10.8) Neutrophils (%) (Auto) 70.5 % (37.0-80.0) Lymphocytes (%) (Auto) 16.0 % (10.0-50.0) Monocytes (%) (Auto) 8.8 % (0.0-12.0) Eosinophils (%) (Auto) 3.5 % (0.0-7.0) Basophils (%) (Auto) 1.2 % (0.0-2.0) Neutrophils # (Auto) 4.6 10 ^3/uL (1.6-8.6) Lymphocytes # (Auto) 1.0 10 ^3/uL (0.4-5.4) Monocytes # (Auto) 0.6 10 ^3/uL (0-1.3) Eosinophils # (Auto) 0.2 10 ^3/uL (0-0.8) Basophils # (Auto) 0.1 10 ^3/uL (0-0.2) Nucleated Red Blood Cells 0.1 % Sodium Level 142 mmol/L (136-145) Potassium Level 4.4 mmol/L (3.5-5.1) Chloride Level 110 mmol/L (98-107) Carbon Dioxide Level 25 mmol/L (20-31) Anion Gap 7 (5-15) Blood Urea Nitrogen 18 mg/dL (9-23) Creatinine 1.04 mg/dL (0.700-1.30) Glomerular Filtration Rate Calc 83 mL/min (>90) BUN/Creatinine Ratio 17.3 (10.0-20.0) Serum Glucose 93 mg/dL (74-106) Calcium Level 10.1 mg/dL (8.7-10.4) Prothrombin Time 10.3 sec (9.3-11.8) Prothrombin Time INR 0.97 (0.9-1.15) Activated Partial Thromboplast Time 31.2 SEC (24.5-34.5) Total Bilirubin 0.9 mg/dL (0.2-1.0) Direct Bilirubin 0.3 mg/dL (<0.3) Aspartate Amino Transferase (AST) 17 U/L (13-40) Alanine Aminotransferase (ALT) 15 U/L (7-40) Alkaline Phosphatase 76 U/L (46-116) Troponin I High Sensitivity 4 ng/L (</=54) Total Protein 5.7 g/dL (5.7-8.2) Albumin 3.6 g/dL (3.2-4.8) Urine Color Yellow (Yellow) Urine Clarity Clear (Clear) Urine pH 6.5 (5.0-9.0) Urine Specific [place] 1.020 (1.001-1.035) Urine Protein Trace (Negative) Urine Ketones Negative (Negative) Urine Blood Negative /uL (Negative) Urine Nitrite Negative (Negative) Urine Bilirubin Negative (Negative) Urine Urobilinogen Normal mg/dL (Negative) Urine Leukocyte Esterase Trace /uL (Negative) Urine RBC 4 /hpf (0 - 3) Urine Microscopic WBC 6 /HPF (0-3) Urine Squamous Epithelial Cells Few /hpf (<5) Urine Bacteria None seen /hpf (None Seen) Urine Mucus Few (None Seen) Urine Glucose Normal mg/dL (Normal) Other Laboratory Tests 03/02/25 06:00 Discharge Disposition: Home Discharge Instruct/Medications Diet: Cardiac 2g Na,low cholest Activity: No Restrictions, As Tolerated Scheduled Atorvastatin Calcium (Lipitor), 1 TAB PO DAILY, (Reported) Sertraline Hcl (Sertraline Hcl), 150 MG PO DAILY, (Reported) Sertraline Hcl (Zoloft), 150 MG PO DAILY Miscellaneous Medications Semaglutide (Ozempic), 2 MG SC, (Reported) Sertraline Hcl (Zoloft), 50 MG PO, (Reported) Discharge Statement: "Patient was advised to return to the ER or call 911 if any headaches, dizziness, shortness of breath, chest pain, abdominal pain, bleeding, fevers, or worsening of medical condition. Patient was counseled about treatment plan, medications, possible side effects, patientverbalized understanding. All questions were answered to the best of my ability. This discharge took greater then 30 minutes in planning, reviewing documentation, counseling the patient, and discussing with other team members." ASSESSMENT ASSESSMENT Assessment IVONNE PINEDA DO Mar 03, 2025 14:57
--- NOTE | 2025-03-03 15:45 | DVHPN2 ---
Subjective Patient is still being waiting for Urology, he also requesting disability papers to be signed. Repeat CT abdomen and pelvis to evaluate for the size of hematoma if it is not worsening can be discharged. 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 Medications Current Medications Medications Dose Ordered Sig/Veronica Route Start Time Stop Time Status Last Admin Dose Admin Morphine Sulfate 2 mg Q30M PRN IV 02/28/25 17:00 Nitroglycerin 0.4 mg Q5MINP PRN SL 02/28/25 17:00 Ceftriaxone Sodium 50 ml @ 100 mls/hr DAILY@09 IV 03/01/25 09:00 03/03/25 08:48 100 MLS/HR Morphine Sulfate 2 mg Q6HPRN PRN IV 02/28/25 17:00 02/28/25 18:49 2 MG Acetaminophen/ Hydrocodone Bitart 1 tab Q6HPRN PRN PO 02/28/25 17:00 03/02/25 20:29 1 TAB Acetaminophen 650 mg Q6HP PRN PO 02/28/25 17:00 Polyethylene Glycol 17 gm DAILYPRN PRN PO 02/28/25 17:00 Sennosides 8.6 mg QHSP PRN PO 02/28/25 17:00 Ondansetron HCl 4 mg Q6HPRN PRN IV 02/28/25 18:30 02/28/25 23:51 4 MG Sertraline HCl 150 mg DAILY PO 03/01/25 10:00 03/03/25 08:48 150 MG Pantoprazole Sodium 40 mg BID PO 03/01/25 22:00 03/03/25 08:48 40 MG Laboratory Results Laboratory Tests 03/02/25 06:00 Urinalysis Test 02/28/25 11:26 Urine Color Yellow (Yellow) Urine Clarity Clear (Clear) Urine pH 6.5 (5.0-9.0) Urine Specific [place] 1.020 (1.001-1.035) Urine Protein Trace (Negative) H Urine Ketones Negative (Negative) Urine Blood Negative /uL (Negative) Urine Nitrite Negative (Negative) Urine Bilirubin Negative (Negative) Urine Urobilinogen Normal mg/dL (Negative) Urine Leukocyte Esterase Trace /uL (Negative) Urine RBC 4 /hpf (0 - 3) Urine Microscopic WBC 6 /HPF (0-3) H Urine Squamous Epithelial Cells Few /hpf (<5) Urine Bacteria None seen /hpf (None Seen) Urine Mucus Few (None Seen) Urine Glucose Normal mg/dL (Normal) Microbiology Microbiology Date/Time Source Procedure Growth Status 02/28/25 22:31 Nose MRSA Screen - Final Complete Assessment/Plan Assessment/Plan 59-year-old male with a recent history of right-sided ureteric stone status post ESWL recently presented to the hospital with a right flank pain found to have 1. Right perinephric hematoma with a recent history of ESWL 2. Bilateral nonobstructing nephrolithiasis 3. Right ureteric stone status post ESWL recently 4. Chronic tobacco use disorder 5. Morbid obesity classII -continue pain meds, Urology consultation. -repeat CT abdomen and pelvis to evaluate the hematoma. Plan discussed with: Patient My Orders Orders - NILDA MATIAS MD Procedure Category Date Status Time Ct Ab Pel Wo Con-No CT 03/03/25 Resulted Oral Or Iv 08:00 Date of Service: Mar 02, 2025 Billing Provider: NILDA MATIAS MD Common Visit Codes: [id number] INP/OBS CARE(HIGH) NILDA MATIAS MD Mar 03, 2025 15:45
== END 2025-03-03 17:30 | disposition home or self-care (01) | DRG 698 ==
LOC: ER 10:34 → OVERFLOW 16:47 → TELE-WESTW 21:30
PROVIDERS: ADMIT Internal Medicine; ATTEND Internal Medicine
DX: S37.011A Minor contusion of right kidney, initial encounter (principal); R65.11 Systemic inflammatory response syndrome (SIRS) of non-infectious origin with acute organ dysfunction; N17.9 Acute kidney failure, unspecified; F32.A Depression, unspecified; E66.01 Morbid (severe) obesity due to excess calories; N18.9 Chronic kidney disease, unspecified; N20.0 Calculus of kidney; F17.210 Nicotine dependence, cigarettes, uncomplicated; E78.5 Hyperlipidemia, unspecified; X58.XXXA Exposure to other specified factors, initial encounter; Z87.442 Personal history of urinary calculi; Z68.21 Body mass index [BMI] 21.0-21.9, adult; Y93.89 Activity, other specified; Y92.89 Other specified places as the place of occurrence of the external cause; Y99.8 Other external cause status
CPT/HCPCS: 36415; 71045; 74176; 80048; 80076; 81001; 84484; 85025; 85610; 85730; 86850; 86900; 86901; 87081; 93005; G0378; J2405